=== PATIENT | male | born 2000 | race Caucasian/White ===

== ENCOUNTER 2024-08-02 17:57 | Emergency (ER) | payer OTHER, SELFPAY ==
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
--- OUTSIDE RECORDS SUMMARY | 2024-08-02 18:04 | XMS_ITS | Data Portability ---
Author Organization [facility] Michelle Winn Address [address] [facility] [place] [address] Care Team Providers Care Pastoral Counselor Name Role Phone MARTINTatum MEI Primary Care Provider Assessment Encounter Date Assessment Date Assessment LastModified by Organization Details LastModified Time 06/26/2020 06/26/[address] Whaley, who concurs with assessment and plan. [email or web address] Not available 06/29/2020 14:01:24 05/23/2023 05/23/2023 Pt's case was discussed w/resident. Documentation was reviewed, and I agree w/resident's note. Dr. Whaley [email or web address] Not available 05/26/2023 08:01:54 Plan of Treatment Reminders Order Date Submit Date Provider Last Modified By Organization Details Last Modified Time Details Appointments None record ed. Lab RPR (rapid plasma reagin ), serum 2023 024 [facility], [address] [place] [address], [address], 4 06:18:09 chlamy brian tracho matis + neisse ga gonorr hoeae + tricho monas vagina lis DNA panel, FAMILIA+pr obe, unspec ified specim en 2023 024 [facility], [address] [facility] [address], [place], [address], 4 06:18:07 HBsAg (hepat itis B surfac e Ag), EIA, serum 2023 024 [facility], [address] [facility], [place], [address], 4 06:18:08 Hepati tis C IgG Ab, qual, serum 2023 024 [facility], [address] [facility], [address], [place], [address], 4 06:18:06 lipid panel, serum 2023 024 [facility], [address] [facility], [place], [address], 4 06:18:07 CBC w/ auto diff 2020 021 [facility], [address], [address], [place], [address], 1 07:12:20 lipid panel, serum 2020 021 [facility], [address], [address], [place], [address], 1 07:12:22 vitami n D, 25-hyd sonia, total, serum 2020 021 [facility], [address], [address], [place], [address], 1 07:12:24 CMP, serum or plasma 2020 021 [facility], [address], [address], [place], [address], 1 07:12:20 HbA1c (hemog lobin A1c), blood 2020 021 [facility], [address], [address], [place], [address], 07:12:23 urinal ysis, comple te 2020 021 [facility], [address], [address], [place], [address], 07:12:21 TSH + free T4, serum 2020 021 [facility], [address], [address], [place], [address], 1 07:12:19 CT + NG RNA, PCR, unspec ified specim en 2020 [facility] BIT[facility], [address], [address], [place], [address], 07:12:22 HIV 1+2 AB + HIV 1 p24 Ag, qualit ative immuno assay, serum 2020 [facility]ER[facility], [address], [address], [place], [address], 1 07:12:25 hsv (1+2) igg Ab, serum 2020 [facility], [address], [address], [place], [address], 1 07:12:23 RPR (rapid plasma reagin ), serum 2020 [facility], [facility] [address], [address], [place], [address], 07:12:24 hepati tis C Ab, signal -to-cu toff, serum or plasma 2020 021 [address], [address], [place], [address], 1 07:12:25 Referral otolar yngolo gist referr de 2023 024 [facility] Jacqueline Swanson , [address] [facility] , [address], [place], [address], 4 17:29:29 physic al therap ist referr de 2020 021 [facility], [address] [facility], [address], [place], [address], 1 12:26:16 orthop edic surgeo n referr de 2020 021 [facility] Mukul Rascon MD, [address] [facility] , [address], [place], [address], 1 12:05:12 Procedures cerume n remova l using irriga tion (PROC) 2021 022 [email or web address] Not available 2 17:01:01 cerume n remova l (PROC) 2021 022 [email or web address] Not available 3 17:46:05 Surgeries None record ed. Imaging US, echoca rdiogr am, transt horaci c, comple te 2023 024 [facility], [address] [facility] [place], [address], 4 10:20:59 XR, knee, 3 view 2020 021 [facility] (Radiology), [address] [facility] [place], [address], 1 13:03:22 Medication Orders Debrox 6.5 % ear drops 2023 024 [place] [address] [id number], [address], [place], [place], [id number], 4 08:01:15 Debrox 6.5 % ear drops 2021 022 [id number], [address] , [place], [place], [id number], 4 10:35:33 Patient TargetsNo targets recorded. Patient Instructions Encounter Date Encounter Id Patient Instructions Last Modified By Organization Details Last Modified Time 06/26/2020 [id number] Learning About H ow to Make Healthy Changes in Your Child's Diet Not available 06/29/2020 11:14:30 Quitting Tobacco : Care Instructions Not available 06/29/2020 11:14:30 Considering More Physical Activity for Your Child Not available 06/29/2020 11:14:30 knee sprain: car e instructions Not available 06/29/2020 11:16:05 smoking cessatio n counseling, greater than 3 minutes up to 10 minutes* Not available 06/29/2020 11:18:18 11/09/2020 [id number] knee pain or injury: care instructions Not available 11/13/2020 17:04:14 01/17/2022 [id number] Attending Physician Addendum I did not personally see or examine the patient with the resident. I was physically present to provide indirect supervision through entire encounter. I have reviewed the documentation and agree with the history, physical findings, work-up, and medical decision making as recorded. Rell Stephens MD [email or web address] Not available 01/29/2022 11:06:13 04/15/2023 [id number] On the date of this encounter, I was immediately available to assist the resident/fellow in the care of the patient, and have reviewed and agree with the resident s findings and plan of care. MD Tremaine [email or web address] Not available 04/15/2023 11:08:34 Reason for Referral Physical Therapist Referral for Pain in right knee Referring Physician: Samantha Robbins, Family Medicine, Encounter Date: 11/09/2020 Orthopedic Surgeon Referral for Pain in right knee Referring Physician: Samantha Robbins, Family Medicine, Encounter Date: 11/09/2020 Spray Gun Sizer Referral fo r Impacted cerumen of bilateral ears Referring Physician: Marietta Danielle, Tobacco Sampler, Encounter Date: 05/23/2023 Results Created Date Observation Date Name Description Value Unit Range Abnormal Flag Note LastModifiedBy Organization Detail LastModifiedTime 06/27/19 21 06/27/2020 TSH + free T4, serum TSH 1.370 uIU/m L 0.450- 4.500 Not Available [facility] ([facility]) [address] [place], [address], 06/28/2020 07:12:19 06/27/1906/27/2020 TSH + free T4, serum T4,free(dire ct) 1.29 NG/dL 0.93-1 .60 Not Available [facility] ([facility]) [address] [place], [address], 06/28/2020 07:12:19 06/27/19 21 06/27/2020 CBC w/ auto diff WBC 7.1 x10e3 /uL 3.4-10 .8 Not Available [facility] ([facility]) [address] [place], [address], 06/28/2020 07:12:20 06/27/19 21 06/27/2020 CBC w/ auto diff RBC 5.15 x10e6 /uL 4.14-5 .80 Not Available [facility] ([facility]) [address] [place], [address], 06/28/2020 07:12:20 06/27/19 21 06/27/2020 CBC w/ auto diff hemoglobin 16.0 g/dL 13.0-1 7.7 Not Available [facility] ([facility]) [address] [place], [address], 06/28/2020 07:12:20 06/27/19 21 06/27/2020 CBC w/ auto diff hematocrit 45.4 % 37.5-5 1.0 Not Available [facility] ([facility]) [address] [place], [address], 06/28/2020 07:12:20 06/27/19 21 06/27/2020 CBC w/ auto diff MCV 88 fL 79-97 Not Available [facility] ([facility]) [address] [place], [address], 06/28/2020 07:12:20 06/27/19 21 06/27/2020 CBC w/ auto diff MCH 31.1 pg 26.6-3 3.0 Not Available [facility] ([facility]) [address] [place], [address], 06/28/2020 07:12:20 06/27/19 21 06/27/2020 CBC w/ auto diff MCHC 35.2 g/dL 31.5-3 5.7 Not Available [facility] ([facility]) [address] [place], [address], 06/28/2020 07:12:20 06/27/19 21 06/27/2020 CBC w/ auto diff RDW 13.1 % 11.6-1 5.4 Not Available [facility] ([facility]) [address] [place], [address], 06/28/2020 07:12:20 06/27/19 21 06/27/2020 CBC w/ auto diff platelets 222 x10e3 /uL 150-45 0 Not Available [facility] ([facility]) [address] [place], [address], 06/28/2020 07:12:20 06/27/19 21 06/27/2020 CBC w/ auto diff neutrophils 54 % not estab. Not Available [facility] ([facility]) [address] [facility], [place], [address], 06/28/2020 07:12:20 06/27/19 21 06/27/2020 CBC w/ auto diff lymphs 33 % not estab. Not Available [facility] ([facility]) [address] [facility], [place], [address], 06/28/2020 07:12:20 06/27/19 21 06/27/2020 CBC w/ auto diff monocytes 10 % not estab. Not Available [facility] ([facility]) [address] [facility], [place], [address], 06/28/2020 07:12:20 06/27/19 21 06/27/2020 CBC w/ auto diff eos 2 % not estab. Not Available [facility] ([facility]) [address] [facility], [place], [address], 06/28/2020 07:12:20 06/27/19 21 06/27/2020 CBC w/ auto diff basos 1 % not estab. Not Available [facility] ([facility]) [address] [facility], [place], [address], 06/28/2020 07:12:20 06/27/19 21 06/27/2020 CBC w/ auto diff immature cells PROJECT ASST Not Available [facility] ([facility]) [address] [facility], [place], [address], 06/28/2020 07:12:20 06/27/19 21 06/27/2020 CBC w/ auto diff neutrophils (absolute) 3.9 x10e3 /uL 1.4-7. 0 Not Available [facility] ([facility]) [address] [place], [address], 06/28/2020 07:12:20 06/27/19 21 06/27/2020 CBC w/ auto diff lymphs (absolute) 2.3 x10e3 /uL 0.7-3. 1 Not Available [facility] ([facility]) [address] [facility], [place], [address], 06/28/2020 07:12:20 06/27/19 21 06/27/2020 CBC w/ auto diff monocytes(ab solute) 0.7 x10e3 /uL 0.1-0. 9 Not Available [facility] ([facility]) [address] [facility], [place], [address], 06/28/2020 07:12:20 06/27/19 21 06/27/2020 CBC w/ auto diff eos (absolute) 0.2 x10e3 /uL 0.0-0. 4 Not Available [facility] ([facility]) [address] [facility], [place], [address], 06/28/2020 07:12:20 06/27/19 21 06/27/2020 CBC w/ auto diff baso (absolute) 0.1 x10e3 /uL 0.0-0. 2 Not Available [facility] ([facility]) [address] [facility], [place], [address], 06/28/2020 07:12:20 06/27/19 21 06/27/2020 CBC w/ auto diff immature granulocytes 0 % not estab. Not Available [facility] ([facility]) [address] [facility], [place], [address], 06/28/2020 07:12:20 06/27/19 21 06/27/2020 CBC w/ auto diff immature grans (abs) 0.0 x10e3 /uL 0.0-0. 1 Not Available [facility] ([facility]) [address] [facility], [place], [address], 06/28/2020 07:12:20 06/27/19 21 06/27/2020 CBC w/ auto diff NRBC PROJECT ASST Not Available [facility] ([facility]) [address] [facility], [place], [address], 06/28/2020 07:12:20 06/27/19 21 06/27/2020 CBC w/ auto diff hematology comments: PROJECT ASST Not Available [facility] ([facility]) [address] [facility] [place], [address], 06/28/2020 07:12:20 06/27/19 21 06/27/2020 CMP, serum or plasm a glucose 83 mg/dL 65-99 Not Available [facility] ([facility]) [address] [facility] [place], [address], 06/28/2020 07:12:20 06/27/19 21 06/27/2020 CMP, serum or plasm a BUN 10 mg/dL 6-20 Not Available [facility] ([facility]) [address] [place], [address], 06/28/2020 07:12:20 06/27/19 21 06/27/2020 CMP, serum or plasm a creatinine 1.10 mg/dL 0.76-1 .27 Not Available [facility] ([facility]) [address] [place], [address], 06/28/2020 07:12:20 06/27/19 21 06/27/2020 CMP, serum or plasm a BUN/creatini ne ratio 9 9-20 Not Available [facility] ([facility]) [address] [place], [address], 06/28/2020 07:12:20 06/27/19 21 06/27/2020 CMP, serum or plasm a sodium 140 mmol/ L 134-14 4 Not Available [facility] ([facility]) [address] [place], [address], 06/28/2020 07:12:20 06/27/19 21 06/27/2020 CMP, serum or plasm a potassium 4.3 mmol/ L 3.5-5. 2 Not Available [facility] ([facility]) [address] [place], [address], 06/28/2020 07:12:20 06/27/1906/27/2020 CMP, serum or plasm a chloride 104 mmol/ L 96-106 Not Available [facility] ([facility]) [address] [facility] [place], [address], 06/28/2020 07:12:20 06/27/19 21 06/27/2020 CMP, serum or plasm a carbon dioxide, total 25 mmol/ L 20-29 Not Available [facility] ([facility]) [address] [facility] [place], [address], 06/28/2020 07:12:20 06/27/19 21 06/27/2020 CMP, serum or plasm a calcium 9.5 mg/dL 8.7-10 .2 Not Available [facility] ([facility]) [address] [place], [address], 06/28/2020 07:12:20 06/27/1906/27/2020 CMP, serum or plasm a protein, total 6.9 g/dL 6.0-8. 5 Not Available [facility] ([facility]) [address] [facility], [place], [address], 06/28/2020 07:12:20 06/27/1906/27/2020 CMP, serum or plasm a albumin 4.8 g/dL 4.1-5. 2 Not Available [facility] ([facility]) [address] [facility] [place], [address], 06/28/2020 07:12:20 06/27/1906/27/2020 CMP, serum or plasm a globulin, total 2.1 g/dL 1.5-4. 5 Not Available [facility] ([facility]) [address] [place], [address], 06/28/2020 07:12:20 0506/27/2020 CMP, serum or plasm a A/G ratio 2.3 1.2-2. 2 above high normal Not Available [facility] ([facility]) [address] [facility] [place], [address], 06/28/2020 07:12:20 06/27/19 21 06/27/2020 CMP, serum or plasm a bilirubin, total 0.4 mg/dL 0.0-1. 2 Not Available [facility] ([facility]) [address] [facility] [place], [address], 06/28/2020 07:12:20 06/27/1906/27/2020 CMP, serum or plasm a alkaline phosphatase 45 IU/L 56-127 below low normal Not Available [facility] ([facility]) [address] [facility] [place], [address], 06/28/2020 07:12:20 06/27/1906/27/2020 CMP, serum or plasm a AST (SGOT) 18 IU/L 0-40 Not Available [facility] ([facility]) [address] [facility] [place], [address], 06/28/2020 07:12:20 06/27/1906/27/2020 CMP, serum or plasm a ALT (SGPT) 13 IU/L 0-44 Not Available [facility] ([facility]) [address] [place], [address], 06/28/2020 07:12:20 06/27/1906/27/2020 urina lysis , compl ete specific gravity 1.021 1.005- 1.030 Not Available [facility] ([facility]) [address] [facility] [place], [address], 06/28/2020 07:12:21 06/27/19 21 06/27/2020 urina lysis , compl ete pH 6.5 5.0-7. 5 Not Available [facility] ([facility]) [address] [facility], [place], [address], 06/28/2020 07:12:21 06/27/1906/27/2020 urina lysis , compl ete urine-color Yellow yellow Not Available [facility] ([facility]) [address] [facility], [place], [address], 06/28/2020 07:12:21 06/27/1906/27/2020 urina lysis , compl ete appearance Clear clear Not Available [facility] ([facility]) [address] [facility], [place], [address], 06/28/2020 07:12:21 06/27/1906/27/2020 urina lysis , compl ete WBC esterase Negati ve negati ve Not Available [facility] ([facility]) [address] [facility], [place], [address], 06/28/2020 07:12:21 06/27/1906/27/2020 urina lysis , compl ete protein Negati ve negati ve/tra ce Not Available [facility] ([facility]) [address] [facility], [place], [address], 06/28/2020 07:12:21 06/27/1906/27/2020 urina lysis , compl ete glucose Negati ve negati ve Not Available [facility] ([facility]) [address] [place], [address], 06/28/2020 07:12:21 06/27/1906/27/2020 urina lysis , compl ete ketones Negati ve negati ve Not Available [facility] ([facility]) [address] [place], [address], 06/28/2020 07:12:21 06/27/1906/27/2020 urina lysis , compl ete occult blood Negati ve negati ve Not Available [facility] ([facility]) [address] [facility], [place], [address], 06/28/2020 07:12:21 06/27/1906/27/2020 urina lysis , compl ete bilirubin Negati ve negati ve Not Available [facility] ([facility]) [address] [place], [address], 06/28/2020 07:12:21 06/27/1906/27/2020 urina lysis , compl ete urobilinogen ,semi-qn 0.2 mg/dL 0.2-1. 0 Not Available [facility] ([facility]) [address] [place], [address], 06/28/2020 07:12:21 06/27/19 21 06/27/2020 urina lysis , compl ete nitrite, urine Negati ve negati ve Not Available [facility] ([facility]) [address] [facility], [place], [address], 06/28/2020 07:12:21 06/27/1906/27/2020 urina lysis , compl ete microscopic examination Commen t Micro scopi c follo ws if indic ated. Not Available [facility] ([facility]) [address] [facility], [place], [address], 06/28/2020 07:12:21 06/27/1906/27/2020 urina lysis , compl ete microscopic examination See below: Micro scopi c was indic ated and was perfo rmed. Not Available [facility] ([facility]) [address] [place], [address], 06/28/2020 07:12:21 06/27/1906/27/2020 urina lysis , compl ete WBC None seen /hpf 0 - 5 Not Available [facility] ([facility]) [address] [place], [address], 06/28/2020 07:12:21 06/27/19 21 06/27/2020 urina lysis , compl ete RBC None seen /hpf 0 - 2 Not Available [facility] ([facility]) [address] [facility], [place], [address], 06/28/2020 07:12:21 06/27/19 21 06/27/2020 urina lysis , compl ete epithelial cells (non renal) None seen /hpf 0 - 10 Not Available [facility] ([facility]) [address] [facility], [place], [address], 06/28/2020 07:12:21 06/27/19 21 06/27/2020 urina lysis , compl ete epithelial cells (renal) PROJECT ASST Not Available [facility] ([facility]) [address] [facility], [place], [address], 06/28/2020 07:12:21 06/27/19 21 06/27/2020 urina lysis , compl ete casts None seen /lpf none seen Not Available [facility] ([facility]) [address] [facility], [place], [address], 06/28/2020 07:12:21 06/27/1906/27/2020 urina lysis , compl ete cast type PROJECT ASST Not Available [facility] ([facility]) [address] [facility], [place], [address], 06/28/2020 07:12:21 06/27/1906/27/2020 urina lysis , compl ete crystals PROJECT ASST Not Available [facility] ([facility]) [address] [facility], [place], [address], 06/28/2020 07:12:21 06/27/1906/27/2020 urina lysis , compl ete crystal type PROJECT ASST Not Available [facility] ([facility]) [address] [facility], [place], [address], 06/28/2020 07:12:21 06/27/19 21 06/27/2020 urina lysis , compl ete mucus threads PROJECT ASST Not Available [facility] ([facility]) [address] [facility], [place], [address], 06/28/2020 07:12:21 06/27/19 21 06/27/2020 urina lysis , compl ete bacteria None seen none seen/f ew Not Available [facility] ([facility]) [address] [facility], [place], [address], 06/28/2020 07:12:21 06/27/1906/27/2020 urina lysis , compl ete yeast PROJECT ASST Not Available [facility] ([facility]) [address] [facility], [place], [address], 06/28/2020 07:12:21 06/27/1906/27/2020 urina lysis , compl ete trichomonas PROJECT ASST Not Available [facility] ([facility]) [address] [facility], [place], [address], 06/28/2020 07:12:21 06/27/1906/27/2020 urina lysis , compl ete comment PROJECT ASST Not Available [facility] ([facility]) [address] [facility], [place], [address], 06/28/2020 07:12:21 06/27/1906/27/2020 lipid panel , serum cholesterol, total 142 mg/dL 100-16 9 Not Available [facility] ([facility]) [address] [place], [address], 06/28/2020 07:12:22 06/27/1906/27/2020 lipid panel , serum triglyceride s 153 mg/dL 0-89 above high normal Not Available [facility] ([facility]) [address] [place], [address], 06/28/2020 07:12:22 06/27/19 21 06/27/2020 lipid panel , serum HDL cholesterol 59 mg/dL >39 Not Available [facility]) [address] [facility], [place], [address], 06/28/2020 07:12:22 06/27/19 21 06/27/2020 lipid panel , serum VLDL cholesterol cely 26 mg/dL 5-40 Not Available [facility] ([facility]) [address] [facility], [place], [address], 06/28/2020 07:12:22 06/27/19 21 06/27/2020 lipid panel , serum LDL chol calc ([facility]) 57 mg/dL 0-109 Not Available [facility] ([facility]) [address] [facility], [place], [address], 06/28/2020 07:12:22 06/27/19 21 06/27/2020 lipid panel , serum comment: PROJECT ASST Not Available [facility] ([facility]) [address] [place], [address], 06/28/2020 07:12:22 06/27/19 21 06/27/2020 CT + NG RNA, PCR, unspe cifie d speci men chlamydia trachomatis, FAMILIA Negati ve negati ve Not Available [facility] ([facility]) [address] [place], [address], 06/28/2020 07:12:22 06/27/1906/27/2020 CT + NG RNA, PCR, unspe cifie d speci men neisseria gonorrhoeae, FAMILIA Negati ve negati ve Not Available [facility] ([facility]) [address] [place], [address], 06/28/2020 07:12:22 06/27/19 21 06/27/2020 hsv (1+2) igg Ab, serum hsv 1 IgG, type spec 2.27 index 0.00-0 .90 above high normal Negat jacki <0.91 Equiv ocal 0.91 - 1.09 Posit jacki >1.09 Note: Negat jacki indic ates no antib odies detec carrie to HSV-1 . Equiv ocal may sugge st early infec tion. If clini skye appro priat e, retes t at later date. Posit jacki indic ates antib odies detec carrie to HSV-1 . Not Available [facility] ([facility]) [address] [facility], [place], [address], 06/28/2020 07:12:23 06/27/19 21 06/27/2020 hsv (1+2) igg Ab, serum hsv 2 IgG, type spec <0.91 index 0.00-0 .90 Negat jacki <0.91 Equiv ocal 0.91 - 1.09 Posit jacki >1.09 Note: Negat jacki indic ates no antib odies detec carrie to HSV-2 . Equiv ocal may sugge st early infec tion. If clini skye appro priat e, retes t at later date. Posit jacki indic ates antib odies detec carrie to HSV-2 . Not Available [facility] ([facility]) [address] [facility], [place], [address], 06/28/2020 07:12:23 06/27/1906/27/2020 HbA1c (hemo globi n A1c), blood hemoglobin A1C 5.5 % 4.8-5. 6 Predi abete s: 5.7 - 6.4 Diabe sandeep: >6.4 Glyce kylah contr ol for adult s with diabe sandeep: <7.0 Not Available [facility] ([facility]) [address] [facility], [place], [address], 06/28/2020 07:12:23 06/27/1906/27/2020 RPR (rapi d plasm a reagi n), serum RPR Non Reacti ve non reacti ve Not Available [facility] ([facility]) [address] [facility], [place], [address], 06/28/2020 07:12:24 06/27/19 21 06/27/2020 vitam in D, 25-hy droxy , total , serum vitamin D, 25-hydroxy 27.7 NG/mL 30.0-1 00.0 below low normal Vitam in D defic iency has been defin ed by the Insti tute of Medic ine and an Endoc rine Socie ty pract ice guide line as a level of serum 25-OH vitam in D less than 20 ng/mL (1,2) . The Endoc rine Socie ty went on to furth er defin e vitam in D insuf ficie ncy as a level betwe en 21 and 29 ng/mL (2). 1. IOM (Inst itute of Medic ine). 2010. Dieta ry refer ence intak es for calci um and D. Octavia rodriguez [place]: The [facility] . 2. Radha pineda [place], Sravanthi sheldon [place], [place] off-F errar i NUNEZ, et al. Evalu ation , treat ment, and preve ntion of vitam in D defic iency : an Endoc rine Socie ty clini cely pract ice guide line. JCEM. 2010; 96(7) :1911 -30. Not Available [facility] ([facility]) [address] [facility], [place], [address], 06/28/2020 07:12:24 06/27/19 21 06/27/2020 HIV 1+2 AB + HIV 1 p24 Ag, quali tativ e immun oassa y, serum HIV screen 4TH generation wrfx Non Reacti ve non reacti ve Not Available [facility] ([facility]) [address], [place], [address], 06/28/2020 07:12:25 06/27/19 21 06/27/2020 hepat itis C Ab, signa l-to- cutof f, serum or plasm a HCV Ab <0.1 s/co_ ratio 0.0-0. 9 Not Available [facility] ([facility]) [address], [place], [address], 06/28/2020 07:12:25 06/27/1906/27/2020 hepat itis C Ab, signa l-to- cutof f, serum or plasm a comment: Commen t Non react jacki HCV antib estee scree n is consi stent with no HCV infec tion, unles s recen t infec tion is suspe cted or other evide nce exist s to indic ate HCV infec tion. Not Available [facility] ([facility]) [address], [place], [address], 06/28/2020 07:12:25 04/15/1904/16/2023 HCV ANTIB ESTEE hep C virus Ab Non Reacti ve nonrea ctive HCV antib estee alone does not diffe renti ate betwe en previ ously resol ella infec tion and activ e infec tion. Equiv ocal and React jacki HCV antib estee resul ts shoul d be follo wed up with an HCV RNA test to suppo rt the diagn osis of activ e HCV infec tion. Not Available [facility] ([facility]) [address], [place], [address], 04/17/2023 06:18:06 04/15/19 24 04/17/2023 CT, NG, TRICH VAG BY FAMILIA chlamydia by FAMILIA Positi ve negati ve abnormal Not Available [facility] ([facility]) [address], [place], [address], 04/17/2023 06:18:07 04/15/19 24 04/17/2023 CT, NG, TRICH VAG BY FAMILIA gonococcus by FAMILIA Negati ve negati ve Not Available [facility] ([facility]) [address], [place], [address], 04/17/2023 06:18:07 04/15/19 24 04/17/2023 CT, NG, TRICH VAG BY FAMILIA trich vag by FAMILIA Negati ve negati ve Not Available [facility] ([facility]) [address] [place], [address], 04/17/2023 06:18:07 04/15/19 24 04/16/2023 LIPID PANEL cholesterol, total 132 mg/dL 100-19 9 Not Available [facility] ([facility]) [address] [place], [address], 04/17/2023 06:18:07 04/15/19 24 04/16/2023 LIPID PANEL triglyceride s 113 mg/dL 0-149 Not Available [facility] ([facility]) [address] [place], [address], 04/17/2023 06:18:07 04/15/19 24 04/16/2023 LIPID PANEL HDL cholesterol 58 mg/dL >39 Not Available [facility] ([facility]) [address] [place], [address], 04/17/2023 06:18:07 04/15/19 24 04/16/2023 LIPID PANEL VLDL cholesterol cely 20 mg/dL 5-40 Not Available [facility] ([facility]) [address] [place], [address], 04/17/2023 06:18:07 04/15/19 24 04/16/2023 LIPID PANEL LDL chol calc ([facility]) 54 mg/dL 0-99 Not Available [facility] ([facility]) [address] [place], [address], 04/17/2023 06:18:07 04/15/19 24 04/16/2023 HBSAG SCREE N HBsAg screen Negati ve negati ve Not Available [facility] ([facility]) [address] [place], [address], 04/17/2023 06:18:08 04/15/19 24 04/16/2023 RPR, RFX QN RPR/C ONFIR M TP RPR Non Reacti ve nonrea ctive Not Available [facility] ([facility]) [address], [place], [address], 04/17/2023 06:18:09 05/27/1905/26/2024 Eryth rocyt e sedim entat ion rate [[place]] in Red Blood Cells erythrocyte sedimentatio n rate [velocity] in red blood cells 10 mm/h high: 15mm/h ESR (SED RATE, ERYTH ROCYT E SEDIM ENTAT ION RATE) 10 <15 mm/h 05/26 10:15 PM CDT [facility] Not Available Not Available 06/03/2024 09:11:29 05/27/1905/26/2024 Eryth rocyt e sedim entat ion rate [[place]] in Red Blood Cells interpretati on and review of laboratory results Normal Not Available Not Available 05/18 09:11:29 05/27/1905/26/2024 C react jacki prote in [Mass /volu me] in Serum or Plasm a C reactive protein [mass/volume ] in serum or plasma 2.46 mg/dL high: 0.5mg/ dL high C-LUIS ANGEL CTIVE PROTE IN 2.46 (H) <0.50 mg/dL 05/26 10:38 PM CDT [facility] Not Available Not Available 06/03/2024 09:11:29 05/27/1905/26/2024 C react jacki prote in [Mass /volu me] in Serum or Plasm a interpretati on and review of laboratory results Abnorm al Not Available Not Available 09:11:29 05/27/19 25 05/27/2024 Acute hepat itis 2000 panel - Serum hepatitis A virus IgM Ab [presence] in serum NON DETECT ED text: non detect ed HEPAT ITIS A IGM ANTIB ESTEE NON DETEC CARRIE NON DETEC CARRIE 05/27 3:17 PM CDT [facility] Not Available Not Available 06/03/2024 09:11:28 05/27/19 25 05/27/2024 Acute hepat itis 2000 panel - Serum hepatitis B virus core IgM Ab [presence] in serum NON DETECT ED text: non detect ed HEP B CORE AB (IGM) NON DETEC CARRIE NON DETEC CARRIE 05/27 3:17 PM CDT [facility] Not Available Not Available 06/03/2024 09:11:28 05/27/19 25 05/27/2024 Acute hepat itis 2000 panel - Serum hepatitis B virus surface Ag [presence] in serum NON DETECT ED text: non detect ed HEPAT ITIS B SURFA CE ANTIG EN NON DETEC CARRIE NON DETEC CARRIE 05/27 3:17 PM CDT [facility] Not Available Not Available 06/03/2024 09:11:28 05/27/19 25 05/27/2024 Acute hepat itis 2000 panel - Serum hepatitis C virus Ab signal/cutof f in serum or plasma by immunoassay 0.16 text: <1 S/co hepat itis C antib estee 0.16 <1 S/CO 05/27 3:17 PM CDT [facility] Not Available Not Available 06/03/2024 09:11:28 05/27/19 25 05/27/2024 Acute hepat itis 2000 panel - Serum interpretati on and review of laboratory results Normal Not Available Not Available 05/18 09:11:28 05/27/19 25 05/31/2024 Bacte ga ident ified in Blood by Cultu re bacteria identified in blood by culture NO GROWTH WITHIN 5 DAYS, FINAL RESULT CULTU RE RESUL TS NO GROWT H WITHI N 5 DAYS, FINAL RESUL T 05/31 9:00 PM CDT [facility] Not Available Not Available 06/03/2024 09:11:28 05/27/19 25 05/27/2024 Heter ophil e Ab [Pres ence] in Serum heterophile Ab [presence] in serum Negati ve text: negati ve MONO TEST Negat jacki Negat jacki 05/26 11:23 PM CDT [facility] Not Available Not Available 06/03/2024 09:11:28 05/27/19 25 05/27/2024 Heter ophil e Ab [Pres ence] in Serum interpretati on and review of laboratory results Normal Not Available Not Available 05/18 09:11:28 05/27/19 25 05/26/2024 Lacta te [Mole s/vol ume] in Serum or Plasm a lactate [moles/volum e] in serum or plasma 1.9 mmol/ L low: 0.7mmo l/Lhig h: 2mmol/ L LACTI C ACID 1.9 0.7 - 2.0 mmol/ L 05/26 9:10 PM CDT [facility] R LAB Not Available Not Available 06/03/2024 09:11:28 05/27/19 25 05/26/2024 Lacta te [Mole s/vol ume] in Serum or Plasm a interpretati on and review of laboratory results Normal Not Available Not Available 05/18 09:11:28 05/28/19 25 05/27/2024 Methi cilli n resis tant Staph yloco ccus aureu s (MRSA ) DNA [Pres ence] in Speci men by FAMILIA with probe detec tion methicillin resistant staphylococc us aureus (MRSA) DNA [presence] in specimen by FAMILIA with probe detection Positi ve text: negati ve, invali d abnormal MRSA PCR RESUL T Posit jacki (A) Negat jacki, Inval id 05/27 12:53 AM CDT [facility] Not Available Not Available 06/03/2024 09:11:29 05/28/19 25 05/27/2024 Methi cilli n resis tant Staph yloco ccus aureu s (MRSA ) DNA [Pres ence] in Speci men by FAMILIA with probe detec tion interpretati on and review of laboratory results Abnorm al Not Available Not Available 09:11:29 06/01/19 25 05/31/2024 Vanco mycin [Mass /volu me] in Serum or Plasm a vancomycin [mass/volume ] in serum or plasma 11 text: 20 - 40 mcg/mL low VANCO MYCIN RESUL T 11 (L) 20 - 40 mcg/m L 05/31 7:24 AM CDT [facility] Not Available Not Available 06/03/2024 09:11:29 06/01/1905/31/2024 Vanco mycin [Mass /volu me] in Serum or Plasm a Unknown Analyte CALL PHARMA CY FOR THERAP EUTIC RANGE. CALL PHARM ACY FOR THERA PEUTI C RANGE . Not Available Not Available 06/03/2024 09:11:29 06/01/1905/31/2024 Vanco mycin [Mass /volu me] in Serum or Plasm a interpretati on and review of laboratory results Abnorm al Not Available Not Available 09:11:29 06/01/1905/31/2024 CBC W Auto Diffe renti al panel - Blood leukocytes [#/volume] in blood by automated count 5.06 text: 4.00 - 12.00 10(3)/ mcL WBC 5.06 4.00 - 12.00 10(3) /mcL 05/31 7:08 AM CDT [facility] Not Available Not Available 06/03/2024 09:11:29 06/01/1905/31/2024 CBC W Auto Diffe renti al panel - Blood erythrocytes [#/volume] in blood by automated count 4.82 text: 4.40 - 5.80 10(6)/ mcL RBC 4.82 4.40 - 5.80 10(6) /mcL 05/31 7:08 AM CDT [facility] Not Available Not Available 06/03/2024 09:11:29 06/01/1905/31/2024 CBC W Auto Diffe renti al panel - Blood hemoglobin [mass/volume ] in blood 15.1 g/dL low: 13g/dL high: 16.5g/ dL HEMOG LOBIN (HGB) 15.1 13.0 - 16.5 g/dL 05/31 7:08 AM CDT [facility] Not Available Not Available 06/03/2024 09:11:29 06/01/1905/31/2024 CBC W Auto Diffe renti al panel - Blood hematocrit [volume fraction] of blood by automated count 44.3 % low: 38%hig h: 50% HEMAT OCRIT (HCT) 44.3 38.0 - 50.0 % 05/31 7:08 AM CDT [facility] Not Available Not Available 06/03/2024 09:11:29 06/01/19 25 05/31/2024 CBC W Auto Diffe renti al panel - Blood MCV [entitic mean volume] in red blood cells by automated count 91.9 fL low: 82fLhi gh: 96fL MCV 91.9 82.0 - 96.0 fL 05/31 7:08 AM CDT [facility] Not Available Not Available 06/03/2024 09:11:29 06/01/19 25 05/31/2024 CBC W Auto Diffe renti al panel - Blood MCH [entitic mass] by automated count 31.3 pg low: 26pghi gh: 32pg MCH 31.3 26.0 - 32.0 pg 05/31 7:08 AM CDT [facility] Not Available Not Available 06/03/2024 09:11:29 06/01/19 25 05/31/2024 CBC W Auto Diffe renti al panel - Blood MCHC [entitic mass/volume] in red blood cells by automated count 34.1 g/dL low: 31g/dL high: 36g/dL MCHC 34.1 31.0 - 36.0 g/dL 05/31 7:08 AM CDT [facility] Not Available Not Available 06/03/2024 09:11:29 06/01/19 25 05/31/2024 CBC W Auto Diffe renti al panel - Blood platelets [#/volume] in blood 205 text: 140 - 440 10(3)/ mcL PLATE LET COUNT 205 140 - 440 10(3) /mcL 05/31 7:08 AM CDT [facility] Not Available Not Available 06/03/2024 09:11:29 06/01/19 25 05/31/2024 CBC W Auto Diffe renti al panel - Blood erythrocyte [distwidth] in red blood cells by automated count 11.9 % low: 11.8%h igh: 15.5% RDW 11.9 11.8 - 15.5 % 05/31 7:08 AM CDT [facility] Not Available Not Available 06/03/2024 09:11:29 06/01/19 25 05/31/2024 CBC W Auto Diffe renti al panel - Blood platelet [entitic mean volume] in blood by automated count 10.2 fL low: 8fLhig h: 12.6fL MPV 10.2 8.0 - 12.6 fL 05/31 7:08 AM CDT [facility] Not Available Not Available 06/03/2024 09:11:29 06/01/19 25 05/31/2024 CBC W Auto Diffe renti al panel - Blood neutrophils/ leukocytes in blood by automated count 41.5 % low: 40%hig h: 68% NEUTR OPHIL S 41.5 40.0 - 68.0 % 05/31 7:08 AM CDT [facility] Not Available Not Available 06/03/2024 09:11:29 06/01/19 25 05/31/2024 CBC W Auto Diffe renti al panel - Blood lymphocytes/ leukocytes in blood by automated count 32 % low: 19%hig h: 49% LYMPH OCYTE S 32.0 19.0 - 49.0 % 05/31 7:08 AM CDT [facility] Not Available Not Available 06/03/2024 09:11:29 06/01/19 25 05/31/2024 CBC W Auto Diffe renti al panel - Blood monocytes/le ukocytes in blood by automated count 17.8 % low: 3%high : 13% high MONOC YTES 17.8 (H) 3.0 - 13.0 % 05/31 7:08 AM CDT [facility] Not Available Not Available 06/03/2024 09:11:29 06/01/19 25 05/31/2024 CBC W Auto Diffe renti al panel - Blood eosinophils/ leukocytes in blood by automated count 7.3 % low: 0%high : 8% EOSIN OPHIL S 7.3 0.0 - 8.0 % 05/31 7:08 AM CDT [facility] Not Available Not Available 06/03/2024 09:11:29 06/01/19 25 05/31/2024 CBC W Auto Diffe renti al panel - Blood basophils/le ukocytes in blood by automated count 1.4 % low: 0%high : 1% high BASOP HILS 1.4 (H) 0.0 - 1.0 % 05/31 7:08 AM CDT [facility] Not Available Not Available 06/03/2024 09:11:29 06/01/19 25 05/31/2024 CBC W Auto Diffe renti al panel - Blood neutrophils [#/volume] in blood by automated count 2.1 text: 1.40 - 5.30 10(3)/ mcL ABSOL HYDABURG NEUTR OPHIL S 2.10 1.40 - 5.30 10(3) /mcL 05/31 7:08 AM CD[facility] Not Available Not Available 06/03/2024 09:11:29 06/01/19 25 05/31/2024 CBC W Auto Diffe renti al panel - Blood lymphocytes [#/volume] in blood by automated count 1.62 text: 0.90 - 3.30 10(3)/ mcL ABSOL HYDABURG LYMPH OCYTE S 1.62 0.90 - 3.30 10(3) /mcL 05/31 7:08 AM CDT [facility] Not Available Not Available 06/03/2024 09:11:29 06/01/19 25 05/31/2024 CBC W Auto Diffe renti al panel - Blood monocytes [#/volume] in blood by automated count 0.9 text: 0.10 - 0.90 10(3)/ mcL ABSOL HYDABURG MONOC YTES 0.90 0.10 - 0.90 10(3) /mcL 05/31 7:08 AM CDT [facility] Not Available Not Available 06/03/2024 09:11:29 06/01/19 25 05/31/2024 CBC W Auto Diffe renti al panel - Blood eosinophils [#/volume] in blood by automated count 0.37 text: 0.00 - 0.50 10(3)/ mcL ABSOL HYDABURG EOSIN OPHIL 0.37 0.00 - 0.50 10(3) /mcL 05/31 7:08 AM CDT [facility] Not Available Not Available 06/03/2024 09:11:29 06/01/1905/31/2024 CBC W Auto Diffe renti al panel - Blood basophils [#/volume] in blood by automated count 0.07 text: 0.00 - 0.10 10(3)/ mcL ABSOL HYDABURG BASOP HILS 0.07 0.00 - 0.10 10(3) /mcL 05/31 7:08 AM CDT [facility] Not Available Not Available 06/03/2024 09:11:29 06/01/1905/31/2024 CBC W Auto Diffe renti al panel - Blood nucleated erythrocytes /leukocytes [ratio] in blood 0 NRBC PER 100 WBC 0 05/31 7:08 AM CDT [facility] Not Available Not Available 06/03/2024 09:11:29 06/01/19 25 05/31/2024 CBC W Auto Diffe renti al panel - Blood interpretati on and review of laboratory results Abnorm al Not Available Not Available 09:11:29 06/01/1905/31/2024 Compr ehens jacki metab olic 2000 panel - Serum or Plasm a sodium [moles/volum e] in serum or plasma 141 mmol/ L low: 136mmo l/Lhig h: 145mmo l/L SODIU M 141 136 - 145 mmol/ L 05/31 8:39 AM CDT [facility] Not Available Not Available 06/03/2024 09:11:29 06/01/19 25 05/31/2024 Compr ehens jacki metab olic 1999 panel - Serum or Plasm a potassium [moles/volum e] in serum or plasma 4.4 mmol/ L low: 3.5mmo l/Lhig h: 5.1mmo l/L POTAS SIUM 4.4 3.5 - 5.1 mmol/ L 05/31 8:39 AM CDT [facility] Not Available Not Available 06/03/2024 09:11:29 06/01/19 25 05/31/2024 Compr ehens jacki metab olic 1999 panel - Serum or Plasm a chloride [moles/volum e] in serum or plasma 106 mmol/ L low: 98mmol /Lhigh : 107mmo l/L CHLOR AMY 106 98 - 107 mmol/ L 05/31 8:39 AM CDT [facility] Not Available Not Available 06/03/2024 09:11:29 06/01/19 25 05/31/2024 Compr ehens jacki metab olic 1999 panel - Serum or Plasm a carbon dioxide, total [moles/volum e] in serum or plasma 28 mmol/ L low: 22mmol /Lhigh : 30mmol /L CO2, VENOU S 28 22 - 30 mmol/ L 05/31 8:39 AM CDT [facility] Not Available Not Available 06/03/2024 09:11:29 06/01/19 25 05/31/2024 Compr ehens jacki metab olic 1999 panel - Serum or Plasm a anion gap in serum or plasma by calculation 11.4 mmol/ L high: 18mmol /L ANION GAP 11.4 <18.0 mmol/ L 05/31 8:39 AM T [facility] Not Available Not Available 06/03/2024 09:11:29 06/01/19 25 05/31/2024 Compr ehens jacki metab olic 2000 panel - Serum or Plasm a glucose [mass/volume ] in serum or plasma 93 mg/dL low: 70mg/d Lhigh: 99mg/d L GLUCO SE 93 70 - 99 mg/dL 05/31 8:39 AM CDT [facility] Not Available Not Available 06/03/2024 09:11:29 06/01/19 25 05/31/2024 Compr ehens jacki metab olic 2000 panel - Serum or Plasm a urea nitrogen [mass/volume ] in serum or plasma 11 mg/dL low: 9mg/dL high: 21mg/d L BUN 11 9 - 21 mg/dL 05/31 8:39 AM CDT [facility] Not Available Not Available 06/03/2024 09:11:29 06/01/19 25 05/31/2024 Compr ehens jacki metab olic 2000 panel - Serum or Plasm a creatinine [mass/volume ] in serum or plasma 0.89 mg/dL low: 0.7mg/ dLhigh : 1.3mg/ dL CREAT ININE , BLOOD 0.89 0.70 - 1.30 mg/dL 05/31 8:39 AM CDT [facility] Not Available Not Available 06/03/2024 09:11:29 06/01/19 25 05/31/2024 Compr ehens jacki metab olic 2000 panel - Serum or Plasm a urea nitrogen/cre atinine [mass ratio] in serum or plasma 12 text: 12 - 20 ratio BUN/C REATI NINE RATIO 12 12 - 20 ratio 05/31 8:39 AM CDT [facility] Not Available Not Available 06/03/2024 09:11:29 06/01/19 25 05/31/2024 Compr ehens jacki metab olic 2000 panel - Serum or Plasm a protein [mass/volume ] in serum or plasma 6.5 g/dL low: 6g/dLh igh: 8g/dL TOTAL PROTE IN 6.5 6.0 - 8.0 g/dL 05/31 8:39 AM CDT [facility] Not Available Not Available 06/03/2024 09:11:29 06/01/19 25 05/31/2024 Compr Downens jacki metab olic 1999 panel - Serum or Plasm a albumin [mass/volume ] in serum or plasma 3.6 g/dL low: 3.5g/d Lhigh: 5g/dL ALBUM IN 3.6 3.5 - 5.0 g/dL 05/31 8:39 AM CDT [facility] Not Available Not Available 06/03/2024 09:11:29 06/01/19 25 05/31/2024 Compr ehens jacki metab olic 1999 panel - Serum or Plasm a albumin/glob ulin [mass ratio] in serum or plasma 1.2 low: 1high: 2.2 A/G RATIO 1.2 1.0 - 2.2 05/31 8:39 AM CDT [facility] Not Available Not Available 06/03/2024 09:11:29 06/01/1905/31/2024 Compr Downens jacki metab olic 1999 panel - Serum or Plasm a calcium [mass/volume ] in serum or plasma 8.9 mg/dL low: 8.7mg/ dLhigh : 10.5mg /dL CALCI UM 8.9 8.7 - 10.5 mg/dL 05/31 8:39 AM CDT [facility] Not Available Not Available 06/03/2024 09:11:29 06/01/1905/31/2024 Compr Downens jacki metab olic 1999 panel - Serum or Plasm a bilirubin.to lisseth [mass/volume ] in serum or plasma 0.3 mg/dL low: 0.2mg/ dLhigh : 1.2mg/ dL T BILI 0.3 0.2 - 1.2 mg/dL 05/31 8:39 AM CDT [facility] LAB Not Available Not Available 06/03/2024 09:11:29 06/01/19 25 05/31/2024 Compr Downens jacki metab olic 2000 panel - Serum or Plasm a aspartate aminotransfe rase [enzymatic activity/vol ume] in serum or plasma 86 U/L high: 43U/L high SGOT (AST) 86 (H) <43 U/L 05/31 8:39 AM CDT [facility] Not Available Not Available 06/03/2024 09:11:29 06/01/19 25 05/31/2024 Compr Downens jacki metab olic 1999 panel - Serum or Plasm a alanine aminotransfe rase [enzymatic activity/vol ume] in serum or plasma 138 U/L high: 56U/L high SGPT (ALT) 138 (H) <56 U/L 05/31 8:39 AM CDT [facility] Not Available Not Available 06/03/2024 09:11:29 06/01/1905/31/2024 Compr Downens jacki metab olic 2000 panel - Serum or Plasm a alkaline phosphatase [enzymatic activity/vol ume] in serum or plasma 40 U/L low: 40U/Lh igh: 150U/L ALKAL INE PHOSP HATAS E 40 40 - 150 U/L 05/31 8:39 AM CDT [facility] Not Available Not Available 06/03/2024 09:11:29 06/01/1905/31/2024 Compr Downens jacki metab olic 2000 panel - Serum or Plasm a glomerular filtration rate [volume rate/area] in serum, plasma or blood by creatinine-b ased formula (CKD-epi 2020)/1.73 sq M low: 60 GFR, ESTIM ATED >60 >=60 05/31 8:39 AM CDT [facility] Not Available Not Available 06/03/2024 09:11:29 06/01/1905/31/2024 Compr ehens jacki metab olic 2000 panel - Serum or Plasm a glomerular filtration rate [volume rate/area] in serum, plasma or blood by creatinine-b ased formula (MDRD)/1.73 sq M among black population low: 60 GFR, EST. AFRIC AN >60 >=60 05/31 8:39 AM CDT [facility] Not Available Not Available 06/03/2024 09:11:29 06/01/1905/31/2024 Compr ehens jacki metab olic 2000 panel - Serum or Plasm a glomerular filtration rate [volume rate/area] in serum, plasma or blood by creatinine-b ased formula (MDRD)/1.73 sq M among non black population low: 60 GFR, EST. NONAF RICAN >60 >=60 05/31 8:39 AM CDT [facility] Not Available Not Available 06/03/2024 09:11:29 06/01/1905/31/2024 Compr ehens jacki metab olic 2000 panel - Serum or Plasm a interpretati on and review of laboratory results Abnorm al Not Available Not Available 09:11:29 11/10/1911/09/2020 XR, knee, 3 view No observ ation record ed. [email or web address] [facility] [address] [place], [address], 11/09/2020 14:30:25 Result Notes None recorded. Problems Name Problem SNOMED Code Status Onset Date Resolution Date Notes Provider Name and Address Organization Details Recorded Time Impacted cerumen of bilateral ears 84092702701 08816 Completed 201809/16/2019 Marietta Danielle MD Attn: Accounting ,[address] [place], [address] , [facility] 4 20:24:25 Acute right otitis media 894761537 Completed 201809/16/2019 SAMANTHA Robbins NP Attn: Accounting ,[address] [place], [address] , [facility] 0 12:15:45 [place] ia 90610012 Active 2023 Elif Draper MD Attn: Accounting ,[address] [place], [address] , [facility] 4 12:53:37 Impacted cerumen of bilateral ears [id number] 86381 Active 2023 Marietta Danielle MD Attn: Accounting ,[address], [place], [address] , [facility] 4 20:24:25 Sore throat [id number] Completed 09/16/2019 SAMANTHA Robbins NP Attn: Accounting ,[address] [facility], [place], [address] , [facility] 0 12:15:52 Acute otitis media [id number] Completed 09/16/2019 SAMANTHA Robbins NP Attn: Accounting ,[address] [facility], [place], [address] , [facility] 0 12:15:43 Streptoco ccal sore throat [id number] Completed 09/16/2019 SAMANTHA Robbins NP Attn: Accounting ,[address] [facility], [place], [address] , [facility] 0 12:15:54 Problem Notes None recorded. Procedures Surgical History Date Name Laterality Status Provider Name and Address Organization Details Recorded Time 2 Cerumen Removal completed Patti Sheehan MA [facility] 01/17/2022 16:33:05 procedure on finger completed Shelbi Bellamy MA [facility] 04/15/2023 10:36:44 Imaging Results None recorded. Procedure Notes None recorded. Medical Equipment None Reported. Allergies No known drug allergies Medications Name Sig Start Date Stop Date Status Note LastModified by Organization Details LastModified Time amoxicillin 500 mg capsule 09/25 completed Not Available Not Available Not Available doxycycline hyclate 100 mg capsule Take 1 capsule twice a day by oral route for 7 days. 05/22 completed Not Available Not Available Not Available cetirizine 10 mg tablet TAKE 1 TABLET BY MOUTH EVERY DAY 01/17 completed Not Available Not Available Not Available ofloxacin 0.3 % eye drops 09/27 completed Not Available Not Available Not Available hydrocodone 5 mg-acetamin ophen 325 mg tablet 01/17 completed Not Available Not Available Not Available Debrox 6.5 % ear drops Instill 5 drops 4 times a day by otic route as directed for 4 days. 2023 active Not Available Not Available Not Avai lable amoxicillin 500 mg tablet Take 1 tablet twice a day by oral route as directed for 10 days. 09/25 completed Not Available Not Available Not Available amoxicillin 875 mg tablet Take 1 tablet twice a day by oral route as directed for 10 days. 09/25 completed Not Available Not Available Not Available fluticasone propionate 50 mcg/actuati on nasal spray,suspe nsion [place] 1 spray every day by intranasa l route. 09/27 completed Not Available Not Available Not Available naproxen 500 mg tablet Take 1 tablet twice a day by oral route after meals. 07/20 completed Not Available Not Available Not Available amoxicillin 875 mg-bria smith clavulanate 125 mg tablet Take 1 tablet every 8 hours by oral route with meals for 10 days. 01/17 completed Not Available Not Available Not Available Vitals Date Recorded Body height Body mass index (BMI) Body weight Body temperature Respiratory rate Heart rate Oxygen saturation Oxygen saturation in Arterial blood by Pulse oximetry Systolic blood pressure Diastolic blood pressure Provider Name and Address Organization Details Last Updated DateTime 4 175.26 cm 21.3 kg/m2 83867.0 5 g 97.3 [degF] 16 /min 52 /min 98 % 98 % 141 mm[Hg] 87 mm[Hg] Shelbi Bellamy [place] [facility] 4 10:34:44 Date Recorded Body height Body mass index (BMI) Body weight Heart rate Oxygen saturation Oxygen saturation in Arterial blood by Pulse oximetry Body temperature Respiratory rate Systolic blood pressure Diastolic blood pressure Provider Name and Address Organization Details Last Updated DateTime 4 175.26 cm 22.4 kg/m2 77543.6 g 68 /min 97 % 97 % 98.2 [degF] 12 /min 124 mm[Hg] 74 mm[Hg] Shelbi Bellamy [place] [facility] 4 17:02:39 Date Recorded Body height Body mass index (BMI) [Percentile] Per age and sex Body mass index (BMI) Body weight Heart rate Respiratory rate Body temperature Systolic blood pressure Diastolic blood pressure Provider Name and Address Organization Details Last Updated DateTime 1 173.99 cm 51 % 22.2 kg/m2 84563.0 7 g 92 /min 16 /min 97.3 [degF] 108 mm[Hg] 60 mm[Hg] Janette Antony MA [facility] 1 16:08:20 Date Recorded Body height Heart rate Respiratory rate Body mass index (BMI) [Percentile] Per age and sex Body mass index (BMI) Body weight Body temperature Systolic blood pressure Diastolic blood pressure Provider Name and Address Organization Details Last Updated DateTime 1 173.99 cm 60 /min 16 /min 41 % 21.7 kg/m2 89624.5 9 g 98 [degF] 114 mm[Hg] 64 mm[Hg] Janette Antony MA [facility] 1 10:40:39 Date Recorded Body weight Body mass index (BMI) [Percentile] Per age and sex Body mass index (BMI) Body height Heart rate Respiratory rate Body temperature Systolic blood pressure Diastolic blood pressure Provider Name and Address Organization Details Last Updated DateTime 2 43083.5 9 g 28 % 21.4 kg/m2 175.26 cm 62 /min 20 /min 98.3 [degF] 112 mm[Hg] 80 mm[Hg] Shilpa Vázquez MA [facility] 2 15:28:36 Social History Question Answer Notes LastModified by Organizat ion Details LastModified Time Tobacco Smoking Status Never Smoker Janette Antony MA null, [facility] 04/19/2015 11:19:53 Animal Exposure? Yes Dogs Informat ion not available 06/14/2015 Are You Blind Or Do You Have Difficulty Seeing? No Information not available 06/26/2020 What Is Your Level Of Caffeine Consumption? Occasional Information not available 06/14/2015 In The 14 Days Before Symptom Onset, Have You Had Close Contact With A Laboratory-confir med COVID-19 While That Case Was Ill? No Information not available 06/26/2020 In The 14 Days Before Symptom Onset, Have You Had Close Contact With A Person Who Is Under Investigation For COVID-19 While That Person Was Ill? No Information not available 06/26/2020 Have You Been To An Area Known To Be High Risk For COVID-19? No Information not available 06/26/2020 Are You Deaf Or Do You Have Serious Difficulty Hearing? No Information not available 06/26/2020 What Type Of Diet Are You Following? REGULAR Information not available 06/14/2015 Have There Been Any Changes To Your Family Or Social Situation? No Information no t available 06/14/2015 Are There Any Guns Present In Your Home? Yes Information not available 06/14/2015 What Is Your Home Situation? Both Parents Information not available 06/14/2015 Do You Use Insect Repellent Routinely? No Information not available 06/14/2015 Car Seat Type Or Seat Belt? Seat Belt Information not available 06/14/2015 Parent Involvement? Both Parents Involved Information not available 06/14/2015 Riding In Car Front Seat? Yes Information not available 06/14/2015 What Was The Date Of Your Most Recent Tobacco Screening? 05/23/2023 Information not available 05/23/2023 How Many Children Do You Have? 1 Information not available 06/26/2020 What Is Your Parents' Marital Status? Information not available 06/14/2015 Do You Use Protection During Sex? Usually Information not available 06/26/2020 What Is Your Relationship Status? Single Information not available 06/26/2020 What Is The Name Of Your School? [employer] Information not available 11/09/2020 Do You Use Your Seat Belt Or Car Seat Routinely? Yes Information not available 06/26/2020 Are You Sexually Active? Yes Information not available 06/26/2020 Do You Have Any Siblings? 1 Brother 1 Sister Information not available 06/14/2015 Do You Have Smoke And Carbon Monoxide Detectors In Your Home? Yes Information not available 06/14/2015 Are You Passively Exposed To Smoke? No Information no t available 06/14/2015 How Much Tobacco Do You Smoke? No Information not available 11/17/2017 What Types Of Sporting Activities Do You Participate In? Baseball,footb all Information not available 06/14/2015 Do You Use Sunscreen Routinely? No Information not available 06/14/2015 Has Tobacco Cessation Counseling Been Provided? No Information not available 04/15/2023 On What Date Was Tobacco Cessation Counseling Provided? 01/17/2022 [email or web address] Information not available 01/17/2022 How Many Years Have You Smoked Tobacco? 0 Information not available 11/17/2017 Year In School 10 Informatio n not available 11/17/2017 Sex: Male Functional Status Question Answer Note LastModified by Organizat ion Details LastModified Time Do you use any illicit or recreational drugs? Yes smokes marijuana Information not available 06/26/2020 Do you or have you ever used any other forms of tobacco or nicotine? Yes Information not available 04/15/2023 What is your level of alcohol consumption? Occasional Information not available 06/26/2020 Are you able to care for yourself? Yes Information not available 06/26/2020 Do you or have you ever used e-cigarettes or vape? Current user of electronic cigarettes Information not available 06/26/2020 What is your exercise level? Heavy Information not available 06/14/2015 Mental Status Question Answer Note LastModified by Organization D etails LastModified Time Do you feel stressed (tense, restless, nervous, or anxious, or unable to sleep at night)? [id number] Information not available 06/26/2020 Family History Relationship Description Onset Age of this Age Resolved Age Notes LastModified by Organization Details LastModified Time Father No current problems or disability estahlma Not available 11/17 10:03:21 Mother No current problems or disability estahlma Not available 11/17 10:03:21 Notes:none per dad Medical History Condition Response Coronary Artery Disease N Other N Atrial Fibrillation N High Blood Pressure N Blood Diseases N Ear or Hearing Problems N Thyroid Problems N Kidney or Bladder Problems N Depression N COPD N Blood Clots N GI Problems N Developmental or Behavioral Disorders N Skin Problems N Premature N Anemia N Constipation N Heart Attack (OR) N Anxiety Disorder N Diabetes N Muscle, Joint, or Bone Problems N Bedwetting N Vision or Eye Problems N Heart Problems/Murmur N Seizures/Epilepsy N Head Injury/Concussion N Acid Reflux (GERD) N Cancer N Stroke N Asthma N Allergies N ADHD N Bladder or Kidney Problems N High Cholesterol N Hepatitis N Liver Disease N Headaches N Chicken Pox N Heart Failure N Autism Spectrum Disorder (ASD) N Osteoporosis N Immunizations Vaccine Type Date Status Note Provider Nam e and Address Organization Details Recorded Time Hep A, unspecified formulation 8 completed RELL STEPHENS MD Attn: [facility] [facility], [place], [address], [place] [facility] 01/17/2022 16:15:11 HPV9 7 completed Not Available [facility] 03/06/2019 02:33:55 Hep B, adolescent or pediatric 2 completed Janette [place], [place] [facility] 09/01/2014 09:59:15 IPV 3 completed [place] [facility] 09/01/2014 09:59:15 Hib, unspecified formulation 3 completed [place] [facility] 09/01/2014 09:59:15 Tdap 4 completed [place] [facility] 09/01/2014 09:59:15 DTP 3 completed MARJORIE [place] [facility] 09/01/2014 09:59:15 pneumococcal conjugate PCV 7 3 completed [place] [facility] 09/01/2014 09:59:15 IPV 4 completed [place] [facility] 09/01/2014 09:59:15 DTP 3 completed [place]ette [place] [facility] 09/01/2014 09:59:15 pneumococcal conjugate PCV 7 3 completed [place] [facility] 09/01/2014 09:59:15 DTP 3 [place] [facility] 09/01/2014 09:59:15 IPV 6 completed [place] [facility] 09/01/2014 09:59:15 meningococcal ACWY, unspecified formulation 4 completed [place] [facility] 09/01/2014 09:59:15 Hep B, adolescent or pediatric 3 completed [place] [facility] 09/01/2014 09:59:15 varicella 6 completed [place] [facility] 09/01/2014 09:59:15 Hib, unspecified formulation 3 completed [place] [facility] 09/01/2014 09:59:15 DTaP, unspecified formulation 4 completed [place] [facility] 09/01/2014 09:59:15 Hep A, ped/adol, 2 dose 5 completed [place] [facility] 09/01/2014 09:59:15 Hep B, adolescent or pediatric 3 completed [place] [facility] 09/01/2014 09:59:15 MMR 4 completed [place] [facility] 09/01/2014 09:59:15 MMR 6 completed [place] [facility] 09/01/2014 09:59:15 IPV 3 completed [place] [facility] 09/01/2014 09:59:15 Hib, unspecified formulation 4 completed [place] [facility] 09/01/2014 09:59:15 DTaP, unspecified formulation 6 completed [place] [facility] 09/01/2014 09:59:15 varicella 4 [place] [facility] 09/01/2014 09:59:15 pneumococcal conjugate PCV 7 3 completed [place]IE [place] [facility] 09/01/2014 09:59:15 Hib, unspecified formulation 3 completed MARJORIE [place] [facility] 09/01/2014 09:59:15 HPV9 8 completed Not Available [facility] 03/06/2019 02:35:59 Influenza, split virus, quadrivalent, PF 8 completed Not Available [facility] 03/06/2019 02:36:24 meningococcal B, OMV 9 completed Not Available [facility] 03/06/2019 02:42:32 meningococcal MCV4P 9 completed Not Available [facility] 03/06/2019 02:41:59 meningococcal B, OMV 9 completed Not Available [facility] 03/06/2019 02:37:37 Past Encounters Encounter ID Performer Location Encounter Start Date Encounter Closed Date Diagnosis/Indication Diagnosis SNOMED-CT Code Diagnosis ICD10 Code Diagnosis Note [id number] MD [facility] [address] [place] [address] 05/20/2014 15:04:39 05/20/2014 16:18:17 Sore throat 665265547 reassure only, NEG strep (dad has strep POS today) [id number] MD [facility] [address] [place] [address] 09/01/2014 15:57:29 09/01/2014 18:35:38 Well child 321188998 IMM is UTD, will give HPV next yesr [id number] MD [facility] [address] [place] [address] 01/19/2015 14:27:55 01/19/2015 16:21:58 Acute otitis media 3554715 H66.001 [id number] MD [facility]) [address] [place] [address] 04/19/2015 10:46:13 04/20/2015 14:14:06 Streptococcal sore throat 11468246 J02.0 [id number] MD [facility] ([facility]) [address] [place] [address] 06/14/2015 15:02:07 06/14/2015 15:38:45 Streptococcal sore throat 68647973 J02.0 strep test strong POS, recurrent, 2nd time in 7 wks [id number] MD Harika Armijo (Peds) [address] [place] [address] 09/26/2015 14:41:14 09/28/2015 18:35:19 Well child 465283807 Z00.129 IMM is UTD, will give HPV next year 08--16 HPV ordered but it's N/A today. [id number] MD Harika Armijo (Peds) [address] [place] [address] 03/11/2016 16:36:14 03/13/2016 15:06:57 Upper respiratory infection 95170468 J06.9 benign, flu likely [id number] MD Harika Montero (Peds) [address] [place] [address] 04/12/2016 13:29:53 04/15/2016 18:00:09 Sore throat 387591715 J02.9 Streptococ cely sore throat 61243428 J02.0 [id number] MD Harika Armijo (Peds) [address] [place] [address] 09/25/2016 09:41:39 09/25/2016 13:35:24 Well child 562157152 Z00.129 IMM is UTD, will give HPV next year 08-09-16 HPV ordered but it's N/A today. [id number] MD Harika Armijo 14 [facility] [address] [facility] [place] [address] 11/17/2017 09:49:44 11/17/2017 12:51:46 Well child 375022819 Z00.129 IMM is UTD, will give HPV next year 08-09-16 HPV ordered but it's N/A today.10-0 1-18 HPV/Flu vac [id number] MD Harika Armijo 14 [facility] [address] [facility] [place] [address] 12/26/2017 14:27:56 12/29/2017 16:53:40 Lower back injury 819145772 S39.92XA [id number] MD Harika Armijo [address] [place] [address] 06/30/2018 14:31:08 07/01/2018 13:28:40 Acute right otitis media 182246763 H66.91 [id number] MD Harika Armijo [address] [place] [address] [place] [address] 07/20/2018 15:40:45 07/21/2018 10:23:12 Well child 790263341 Z00.129 IMM is UTD, will give HPV next year 09-25- HPV ordered but it's N/A today.10-0 1-18 HPV/Fluzon e, 07-21-18 Vaccines given Impacted c erumen of bilateral ears 0556159284 222635 H61.23 Cerumen removal Rt only..not effective Acute righ t otitis media 475346400 H66.91 extra course of Augmentin [id number] MD Harika Montero [address] [place] [address] 08/27/2018 15:30:46 08/28/2018 12:02:03 Active or passive immunization 551114873 Z23 [id number] MD Harika Montero [address] [place] [address] 09/16/2019 09:39:45 09/20/2019 11:51:00 Allergic rhinitis 00300905 J30.9 -if symptoms persist or get worse, please call or return-Dis cussed covid testing/sy mptoms.-Ta ke medication as discussed. [id number] MD Harika Montero [address] [place] [address] [place] [address] 09/28/2019 10:07:28 09/29/2019 13:02:56 At increased risk of sexually transmitted infection 400545301 Z20.2 -Will get lab work done.-No known exposure. Will test and if positive will treat. Pt agreeable to plan.-Enco uraged condom use and safe sex. Pt states understand ing. [id number] María Elena Garibay-MD Harika Hdz 14 P[facility]S [address] [facility] [place] [address] 12/15/2019 10:03:35 12/16/2019 21:26:35 Impacted cerumen of bilateral ears 7056726737 094545 H61.23 -Use as directed-W ill call clinic if no improvemen t in symptoms Allergic rhinitis 752063 04 J30.9 -if symptoms persist or get worse, please call or return-Dis cussed covid testing/sy mptoms. Declined at this time.-Take medication as discussed. [id number] DUSTIN De Anda 14 PEDS [address] [facility] [address] [place] [address] 06/26/2020 15:56:41 06/29/2020 16:07:38 At increased risk of sexually transmitted infection 833466766 Z20.2 -Will get lab work done.-No known exposure. Will test and if positive will treat. Pt agreeable to plan.-Enco uraged condom use and safe sex. Pt states understand ing. Adult heal th examination 635906145 Z00.00 -Get lab work done as discussed. We will call you with the results -safety discussed with patient -Pt immunizati ons UTD -Will make eye apt -Diet and exercise discussed -Will make dental apt. -Counseled on smoking and alcohol cessation. History an d physical examination, sports participation 209178895 Z02.5 -Cleared Diet education 93544778 Z71.3 -limit sugary foods in diet. Eat lots of fruits and vegetables . -5,4,3,2,1 discussed: 1 or more hours of physical activity a day. 2 or less hours of screen time a day. 3 servings of low-fat dairy a day. 4 servings of water a day. 5 servings of fruits and vegetables a day. Exercises education, guidance, and counseling 804777691 Z71.82 limit screen time to less than 2 hours per day. Normal bod y mass index 89227553 Z68.22 Smoker 32426291 F17.200 Marijuana user 187295135 F12.90 Pain in right knee 15350 75165 61167 M25.561 -Pt would like to complete track season and return if pain is still persistant . [id number] DUSTIN De Anda 14 PEDS [address] [facility] [place] [address] 11/09/2020 10:24:58 11/13/2020 16:54:27 Pain in right knee 7399474054 50478 M25.561 -To complete xrays, we will call with results-Wi ll refer to ortho and PT-Pt to alert clinic if any new of worsening pain-Can take ibuprofen and wrap in wendy if pain [id number] MD Harika JUNE 14 IM [address] [facility] [place] [address] 01/17/2022 15:01:21 01/23/2022 11:25:19 Impacted cerumen of bilateral ears 5450153164 508702 H61.23 cerumen impaction noted. Irrigation performed on the R side, and some cleaning done on the L. Pt would benefit from debrox longer term. Discussed w/ pt not putting anything into his ears. Will have him f/u in a few months for [facility] ent of care. [id number] MD Harika Tapia 14 [address] [facility] [place] [address] 04/15/2023 10:28:36 04/22/2023 09:56:00 Venereal disease screening 991266822 Z11.3 see A&P under adult health examinatio n Adult [facility] examination 820639958 Z00.00 - 29 yo M with no previous PMH presents for annual visit- no acute concerns at this time- pt's vitals significan t for bradycardi a, is not athletic so is an abnormal finding- EKG showed sinus bradycardi a with no other abnormalit ies, will order echo at this time also- pt's last blood work showed elevated cholestero l will recheck at this time- will also do an STI/STD screening at this time, pt is asymptomat ic and denies risky sexual behaviours Bradycardia 27721446 R00 .1 see A&P under adult health examinatio n [id number] MD Harika Ricketts 14 IM [address] [facility] [place] [address] 05/23/2023 16:53:55 06/09/2023 15:08:01 Impacted cerumen of bilateral ears 8747871250 532502 H61.23 Longstandi ng history of excessive cerumen production . Last cleared by pediatrici an over 1 year ago. Causing ear fullness, pain, and decreased hearing. Pt denies instrument ation. Attempted to clear earwax with curette with little success. Through shared decision making, plan to continue acute management in resident clinic and establish with ENT for long-term management . - debrox drops QID x4 days to soften wax- return to office in 4 days for ear lavage- referral to ENT for chronic management Health Concerns Section Related Observation LastModified by Organization Detai ls LastModified Time None Recorded Concern Status LastModified by Organization Details LastModified Time None Recorded Advance Directives Directive None Recorded Payers Insurance Date Sequence Insurance Name Policy Number Policy Sue Covered Member ID Sue Member ID Guarantor Name 01/17/2022 1 [facility] [id number] Tesfaye Reece [id number] Reginald Reece 01/17/2022 2 [facility] [id number] Tesfaye Reece [id number] Reginald Reece 01/19/2015 1 [facility] (POS) [id number] Tesfaye Reece [id number] Reginald Reece 03/11/2016 1 [facility] (PPO) [id number] Tesfaye Reece [id number] Reginald Jose G Reece 11/07/2020 1 [facility] (PPO) [id number] Tesfaye Reece [id number] Reginald Reece 05/31/2024 1 [facility] [id number] Maranda Gonzalez [id number] Reginald Reece Notes Date Note Type Note Provider Name and Address Organization Details Recorded Time 06/26/2020 text/html Pt here for spor ts physical. Reports occassional R knee pain. He is actively seeing his review trainer at school. He runs track. Reports pain sometimes after running. No injury to area. He has been able to participate without issues. Aleksander Whaley MD Attn: [place], [address], [facility] 06/29/2020 14:01:33 11/09/2020 text/html KneeReported bypatient.Location:r ight Quality:aching Severity:mild; pain level 0/10; worst pain 6/10 Duration:1 years Associated Symptoms:no numbness; no tingling; no swelling; no redness; no warmth; no ecchymosis; no catching/locking; no popping/clicking; no buckling; no grinding; no instability; no fever; no chills; no weight loss; no change in bowel/bladder habits;weakness;radi ation down leg Pt here today for R knee pain. Pt reports R knee pain for one year. Pt denies any instability. Feels pain almost daily. Feels pain with stairs. Pt has pain with squats. Pt has tried stretching. SAMANTHA Robbins NP Attn: [facility],[address] [place], [address], [facility] 11/13/2020 17:04:24 01/17/2022 text/html pt is a 21 yo M who presents for decreased hearing. States that he has a h/o of this and that he has been on ear drops in the past b/c the ear wax nancy build up and cause him to not be able to hear. Has been off of these drops for a while now and has noted that he cannot hear now in his R ear. worse on the R side, does not use q-tips, wears head phones, and nothing seems to make this better. Denies ear pain, fever, NUNEZ, light headedness, neck pain, blurred vision, sinus tenderness, CP, SOB, NVDC. RELL STEPHENS MD Attn: [facility] [place], [address], [facility] 01/29/2022 11:06:22 04/15/2023 text/html 23 yo male here for annual exam, has no acute concerns or complaints at this time. Currently not in education or employed but is looking for work.Lives with his mom and feels safe at home, is currently sexually active uses condoms. Endorses marijuana use and nothing else. Negative ROS. Elif Draper MD Attn: [facility],[address] [place], [address], [facility] 04/21/2023 12:53:47 05/23/2023 text/html Reginald is a 23 ye ar old with no significant medical history here for ear fullness and decreased hearing. Also with pain in right ear starting 3 days ago. He reports he has dealt with overproduction of earwax and regularly had his ears cleaned as a child. Also told he has narrow ear canals. Most recently cleaned over 1 year ago. Does not use Q-tips or other objects, sometimes uses fingers to wipe wax near outside. Occasionally uses earwax softening drops. No systemic sick symptoms. Aleksander Whaley MD Attn: [employer],[address] [place], [address], [facility] 05/26/2023 08:02:11
--- OUTSIDE RECORDS SUMMARY | 2024-08-02 18:04 | XMS_ITS | Clinical Summary ---
Author Organization [facility] Address [address] [place] [address] Phone Care Team Providers Care Stakeholder Manager Name Role Phone Aleksander Whaley MD Primary Care Provider [phone] Allergies No known active allergies Medications No known medications Active Problems Problem Noted Date Diagnosed Date Cellulitis of left upper extremity 05/26/2024 Elevated LFTs 05/26/2024 Dehydration 05/26/2024 Impacted cerumen of right ear 08/27/2018 Acquired stenosis of both external ear canals Impacted cerumen of left ear 07/28/2018 Impacted cerumen, bilateral 07/28/2018 Adjustment disorder 06/14/2017 Encounters Date Type Department Care Team Description 06/09/2024 Results Follow-Up [facility] [address] [place] [phone] Danny Rodgers MD SYPHILIS IGG/IGM W/REFLEX, HIV 1 & 2 ANTIBODY & ANTIGEN SCREEN, CHLAMYDIA & GC DNA PROBE > 12 06/08/2024 3:00 PM CDT Office Visit [facility] [address] [place] [id number] Danny Rodgers MD Cellulitis of left upper extremity (Primary Dx); Possible exposure to STI Discharge Disposition: Discharged to home or Selfcare 06/08/2024 Travel 05/31/2024 Telephone [facility] [address] [place] [phone] Provider, None Post-Hospital Follow-up 05/26/2024 7:43 PM CDT - 05/31/2024 3:10 PM CDT Hospital Encounter [facility] Med Surg [address] [address] [place] [address] Kareem Min MD Dianati, Behfar, MD Krishna, Naveen Kumar, MD Cellulitis of left upper extremity Discharge Disposition: Discharged to home or Selfcare 05/26/2024 Travel from Last 3 Months Immunizations Immunization Administration Dates Next Due DTAP VACCINE, UNSPECIFIED FORMULATION 02/04/2006 ,07/28/2003 DTP Vaccine 2002,2002,2002 Hepatitis A Vaccine, Pediatric/adolescent, 2 Dose Schedule 02/05/2005 Hepatitis A Vaccine,unspecif ied Formulation 07/07/2007 Hepatitis B Vaccine, Pediatric/adolescent 2002,2002,2002 Hib Vaccine,unspecified Formulation 07/18,2002,2002,04/07 Human Papillomavirus (HPV) 9 -valent Vaccine 11/17/2017,09/25/2016 Inactivated Polio Vaccine 02/04/2006,03/2003,2002,04/07 Influenza Vaccine, Quadrivalent, PF 11/17/2017 MMR Vaccine 02/04/2006,02/18/2003 Meningococcal Group B OMV 08/27/2018,07/20/2018 Meningococcal Vaccine 07/20/2018 Meningococcal Vaccine, Unspe cified Formulation 09/16/2013 Pneumococcal Vaccine Peds - 7 Valent 2002, 2002,2002 TDAP Vaccine 05/24/2024,09/16/2013 Varicella Vaccine Live 02/04/2006,07/28/2003 Family History Medical History Relation Name Comments No Known Problems Father Tesfaye No Known Problems Mother Maranda Relation Name Status Comments Father Tesfaye Alive Mother Maranda Alive Social History Tobacco Use Types Packs/Day Years Used Date Smoking Tobacco: Never Smokeless Tobacco: Former Tobacco Cessation:Counseling Given: No Alcohol Use Standard Drinks/Week Comments Yes 0 (1 standard drink = 0.6 oz pur e alcohol) Occassional [facility] Utilities Answer Date Recorded In the past 12 months has th e electric, gas, oil, or water company threatened to shut off services in your home? No 05/26/2024 Social Connection and Isolation Panel Answer Date Recorded In a typical week, how many times do you talk on the phone with family, friends, or neighbors? Patient declined 05/26/2024 How often do you get togethe r with friends or relatives? Patient declined 05/26/2024 How often do you attend pentecostalism or holiness serv ices? Patient declined 05/26/2024 Do you belong to any clubs o r organizations such as pentecostalism groups, unions, fraternal or athletic groups, or school groups? Patient declined 05/26/2024 How often do you attend meet ings of the clubs or organizations you belong to? Patient declined 05/26/2024 Are you , , di vorced, , never , or living with a partner? Patient declined 05/26/2024 AUDIT-C Answer Date Recorded Q1: How often do you have a drink containing alc ohol? Monthly or less 05/26/2024 Q2: How many drinks containi ng alcohol do you have on a typical day when you are drinking? 1 or 2 05/26/2024 Q3: How often do you have si x or more drinks on one occasion? Less than monthly 05/26/2024 Overall Financial Resource Strain (CARDIA) Answe r Date Recorded How hard is it for you to pa y for the very basics like food, housing, medical care, and heating? Not hard at all 05/26/2024 [facility]ational Stress Questionnaire Answer Date Recorded Do you feel stress - tense, restless, nervous, or anxious, or unable to sleep at night because your mind is troubled all the time - these days? Not at all 05/26/2024 Exercise Vital Sign Answer Date Recorde d On average, how many days pe r week do you engage in moderate to strenuous exercise (like a brisk walk)? 3 days 05/26/2024 On average, how many minutes do you engage in exercise at this level? 30 min 05/26/2024 Hunger Vital Sign Answer Date Recorded Within the past 12 months, y ou worried that your food would run out before you got the money to buy more. Never true 05/27/19 25 Within the past 12 months, t he food you bought just didn't last and you didn't have money to get more. Never true 05/26/2024 PRAPARE - Transportation Answer Date Re corded In the past 12 months, has l ack of transportation kept you from medical appointments or from getting medications? No 10/2024 In the past 12 months, has l ack of transportation kept you from meetings, work, or from getting things needed for daily living? No 05/26/2024 Housing Stability Vital Sign Answer Jarek e Recorded In the last 12 months, was t here a time when you were not able to pay the mortgage or rent on time? No 05/26/2024 In the past 12 months, how m any times have you moved where you were living? 0 05/26/2024 At any time in the past [facility], were you homeless or living in a detention (including now)? No 05/26/2024 Sexually Active Control Partners Comments Not Currently Female Sex and Gender Information Value Date Recorded Sex Assigned at Not on file Legal Sex Male 10:56 PM CDT Gender Identity Not on file Sexual Orientation Not on file Last Filed Vital Signs Vital Sign Reading Time Taken Comments Blood Pressure 116/80 06/08/2024 3:11 PM CDT Pulse 86 06/08/2024 3:11 PM CDT Temperature 36.6 C (97.8 F) 06/08/2024 3:11 PM CDT Respiratory Rate 16 06/08/2024 3:11 PM CDT Oxygen Saturation 97% 06/08/2024 3:11 PM CDT Inhaled Oxygen Concentration - - Weight 71.2 kg (157 lb) 06/08/2024 3:11 PM CDT Height 175.3 cm (5' 9) 06/08/2024 3:11 PM CDT Body Mass Index 23.18 06/08/2024 3:11 PM CDT Plan of Treatment Health Maintenance Due Date Last Done Comments SARS-COV-2 Immunization ( season) 2023 Influenza Immunization (Season Ended) 2024 11/17/2017 DTaP/Tdap/Td Immunization (8 - Td or Tdap) 05/24/2034 05/24/2024, 09/16/2013, 02/04/2006, Additional history exists Respiratory Syncytial Virus (RSV) Immunization (Adult) (1 - 1-dose 75+ series) 2077 Hepatitis B Immunization Completed 003, 2002, 2002 Pneumococcal Immunization Combined Aged Out 2002, 2002, 2002 No longer eligible based on patient's age to complete this topic Measles Mumps Rubella (MMR) Immunization Discontinued 02/04/2006, 02/18/2003 Polio (IPV) Immunization Discontinued 006, 02/18/2003, 2002, Additional history exists Varicella Immunization Discontinued 02/04/2006, 2003 Hepatitis A Immunization Discontinued 07/07/2007, 01/18 Human Papillomavirus (HPV) Immunization Completed 11/17/2017, 09/25/2016 Meningococcal Immunization (ACWY) Completed 07/20/2018, 09/16/2013 Meningococcal B Immunization Completed 08/27/2018, 07/20/2018 TdaP Immunization Discontinued 05/24/2024, 09/16/2013 Hepatitis C Virus (HCV) Screening Completed 05/26/2024 Rotavirus Immunization Aged Out No lo nger eligible based on patient's age to complete this topic Procedures Procedure Name Priority Date/Time Associated Diagnosis Comments HIV 1 & 2 ANTIBODY & ANTIGEN SCREEN Routine 06/08/2024 3:54 PM CDT Possible exposure to STI SYPHILIS IGG/IGM W/REFLEX Routine 06/08/2024 3:54 PM CDT Possible exposure to STI CHLAMYDIA & GC DNA PROBE Routine 06/08/2024 3:54 PM CDT Possible exposure to STI CHLAMYDIA & GC DNA PROBE > 12 Routine 06/08/2024 3:54 PM CDT Possible exposure to STI VANCOMYCIN Timed 05/31/2024 6:55 AM CDT CBC WITH AUTO DIFFERENTIAL Routine 05/31/2024 6:54 AM CDT COMPLETE BLOOD COUNT (CBC) WITH DIFF Routine 05/31/2024 6:54 AM CDT CMP (COMPREHENSIVE METABOLIC PANEL) Timed 05/31/2024 6:54 AM CDT VANCOMYCIN Timed 05/30/2024 4:10 AM CDT CBC WITH AUTO DIFFERENTIAL Routine 05/30/2024 4:09 AM CDT COMPLETE BLOOD COUNT (CBC) WITH DIFF Routine 05/30/2024 4:09 AM CDT CMP (COMPREHENSIVE METABOLIC PANEL) Routine 05/30/2024 4:09 AM CDT CMP (COMPREHENSIVE METABOLIC PANEL) Routine 05/29/2024 4:24 AM CDT CBC WITH AUTO DIFFERENTIAL Routine 05/29/2024 4:23 AM CDT COMPLETE BLOOD COUNT (CBC) WITH DIFF Routine 05/29/2024 4:23 AM CDT BARTONELLA AB PANEL, IGG & IGM, BOONE Routine 05/29/2024 4:23 AM CDT CBC WITH AUTO DIFFERENTIAL Routine 05/28/2024 5:10 AM CDT VANCOMYCIN Timed 05/28/2024 5:10 AM CDT CMP (COMPREHENSIVE METABOLIC PANEL) Routine 05/28/2024 5:10 AM CDT COMPLETE BLOOD COUNT (CBC) WITH DIFF Routine 05/28/2024 5:10 AM CDT CBC WITH AUTO DIFFERENTIAL STAT 05/27/2024 4:34 AM CDT CMP (COMPREHENSIVE METABOLIC PANEL) STAT 05/27/2024 4:34 AM CDT COMPLETE BLOOD COUNT (CBC) WITH DIFF STAT 05/27/2024 4:34 AM CDT MRSA NASAL PCR Routine 05/26/2024 11:32 PM CDT MRSA NASAL BY PCR Routine 05/26/2024 11: [address] LEFT ELBOW W CONTRAST STAT 05/26/2024 10:16 PM CDT URINALYSIS REFLEX IF INDICATED BY ABNORMAL RESULTS STAT 05/26/2024 8:52 PM CDT GOLD TOP TUBE STAT 05/26/2024 8:39 PM CDT BLUE TOP TUBE STAT 05/26/2024 8:39 PM CDT CBC WITH AUTO DIFFERENTIAL STAT 05/26/2024 8:39 PM CDT BARTONELLA AB PANEL, IGG & IGM, BOONE Routine 05/26/2024 8:39 PM CDT MONO TEST (INFECTIOUS MONONUCLEOSIS) Routine 05/26/2024 8:39 PM CDT ERYTHROCYTE SEDIMENTATION RATE (ESR) STAT 05/26/2024 8:39 PM CDT C-REACTIVE PROTEIN (CRP) QUANT STAT 05/26/2024 8:39 PM CDT HEPATITIS PANEL ACUTE (AHP) STAT 05/26/2024 8:39 PM CDT EXTRA TUBES STAT 05/26/2024 8:39 PM CDT CMP (COMPREHENSIVE METABOLIC PANEL) STAT 05/26/2024 8:39 PM CDT COMPLETE BLOOD COUNT (CBC) WITH DIFF STAT 05/26/2024 8:39 PM CDT CULTURE, BLOOD STAT 05/26/2024 8:39 PM CDT LACTIC ACID (LACTATE) STAT 05/26/2024 8:28 PM CDT CULTURE, BLOOD STAT 05/26/2024 8:26 PM CDT from Last 3 Months Results * HIV 1 & 2 ANTIBODY & ANTIGEN SCREEN (06/08/2024 3:54 PM CDT) [facility] HIV 1 & 2 ANTIBODY & ANTIGEN SCREEN NON DETECTED NON DETECTED 06/08/2024 9:28 PM CDT [facility] Blood Venipuncture / Unknown 06/08/2024 3:54 PM CDT 06/08/2024 4:35 PM CDT us Danyn Rodgers MD LAB SEND OUTS Final Result Performing Organization Address [facility] Co de Phone Number [facility] [address] [place] [address], [place] * CHLAMYDIA & GC DNA PROBE > 12 (06/08/2024 3:54 PM CDT) [facility] CHLAMYDIA DNA NEGATIVE NEGATIVE 06/09/2024 12:18 AM CDT [facility] Comment: Presumed negative for C. trachomatis. A negative result does not preclude C. trachomatis infection because results are dependent on adequate specimen collection, absence of inhibitors, and sufficient DNA to be detected. This test was performed using TONY 5800 Real Time PCR. GC DNA NEGATIVE NEGATIVE 06/09/2024 12:18 AM CDT [facility] Comment: Presumed negative for N. gonorrhoeae. A negative result does not preclude N. gonorrhoeae infection because results are dependent on adequate specimen collection, absence of inhibitors, and sufficient DNA to be detected. This test was performed using TONY 5800 Real Time PCR. Other URINE / Unknown Non-Phlebotomy Collection / Unknown 06/08/2024 3:54 PM CDT 06/08/2024 4:36 PM CDT us Danny Rodgers MD MICROBIOLOGY - GENERAL ORDERA BLES Final Result Performing Organization Address [facility]/ZIP Co de Phone Number [facility] [address] [place] [address], [place] * SYPHILIS IGG/IGM W/REFLEX (06/08/2024 3:54 PM CDT) Pathologist [facility] SYPHILIS IGG/IGM Nonreactive Nonreactive 06/08/2024 9:25 PM CDT [facility] Blood Venipuncture / Unknown 06/08/2024 3:54 PM CDT 06/08/2024 4:35 PM CDT Danny Rodgers MD IMMUNOLOGY ORDERABLES Final R esult [facility] [address] [place] [address], * (ABNORMAL) Vancomycin Level (05/31/2024 6:55 AM CDT) Only the most recent of3 resultswithin the time period is included. [facility] VANCOMYCIN RESULT 11(L) 20 - 40 mcg/mL 05/31/2024 7:24 AM CDT [facility] Blood Venipuncture / Unknown 05/31/2024 6:55 AM CDT 05/31/2024 7:04 AM CDT Narrative [facility] - 05/31/2024 7:24 AM CDT CALL PHARMACY FOR THERAPEUTIC RANGE. Harry Patterson MD CHEMISTRY ORDERABLES Fin al Result Performing Organization Address City/[facility]/ZIP Co de Phone Number [facility] [address] [place] [address] * (ABNORMAL) CBC with Auto Differential (05/31/2024 6:54 AM CDT) Only the most recent of6 resultswithin the time period is included. [facility] WBC 5.06 4.00 - 12.00 10(3)/mcL 05/31/2024 7:08 AM CDT [facility] RBC 4.82 4.40 - 5.80 10(6)/mcL 05/31/2024 7:08 AM CDT [facility] HEMOGLOBIN (HGB) 15.1 13.0 - 16.5 g/dL 05/31/2024 7:08 AM CDT [facility] HEMATOCRIT (HCT) 44.3 38.0 - 50.0 % 05/31/2024 7:08 AM CDT [facility] MCV 91.9 82.0 - 96.0 fL 05/31/2024 7:08 AM CDT [facility] MCH 31.3 26.0 - 32.0 pg 05/31/2024 7:08 AM CDT [facility] MCHC 34.1 31.0 - 36.0 g/dL 05/31/2024 7:08 AM CDT [facility] PLATELET COUNT 205 140 - 440 10(3)/mcL 05/31/2024 7:08 AM CDT [facility] RDW 11.9 11.8 - 15.5 % 05/31/2024 7:08 AM CDT [facility] MPV 10.2 8.0 - 12.6 fL 05/31/2024 7:08 AM CDT [facility] NEUTROPHILS 41.5 40.0 - 68.0 % 05/31/2024 7:08 AM CDT [facility] LYMPHOCYTES 32.0 19.0 - 49.0 % 05/31/2024 7:08 AM CDT [facility] MONOCYTES 17.8(H) 3.0 - 13.0 % 05/31/2024 7:08 AM CDT [facility] EOSINOPHILS 7.3 0.0 - 8.0 % 05/31/2024 7:08 AM CDT [facility] BASOPHILS 1.4(H) 0.0 - 1.0 % 05/31/2024 7:08 AM CDT [facility] ABSOLUTE NEUTROPHILS 2.10 1.40 - 5.30 10(3)/mcL 05/31/2024 7:08 AM CDT [facility] ABSOLUTE LYMPHOCYTES 1.62 0.90 - 3.30 10(3)/mcL 05/31/2024 7:08 AM CDT [facility] ABSOLUTE MONOCYTES 0.90 0.10 - 0.90 10(3)/mcL 05/31/2024 7:08 AM CDT [facility] ABSOLUTE EOSINOPHIL 0.37 0.00 - 0.50 10(3)/mcL 05/31/2024 7:08 AM CDT [facility] ABSOLUTE BASOPHILS 0.07 0.00 - 0.10 10(3)/mcL 05/31/2024 7:08 AM CDT [facility] NRBC PER 100 WBC 0 06/01/19 7:08 AM CDT [facility] Blood Venipuncture / Unknown 05/31/2024 6:54 AM CDT 05/31/2024 7:04 AM CDT us Harry Patterson MD HEMATOLOGY ORDERABLES Fi nal Result [facility] [address] [place] [address] * (ABNORMAL) Comprehensive Metabolic Panel (CMP) (05/31/2024 6:54 AM CDT) Only the most recent of6 resultswithin the time period is included. SODIUM 141 136 - 145 mmol/L 05/31/2024 8:39 AM CDT [facility] POTASSIUM 4.4 3.5 - 5.1 mmol/L 05/31/2024 8:39 AM CDT [facility] CHLORIDE 106 98 - 107 mmol/L 05/31/2024 8:39 AM CDT [facility] CO2, VENOUS 28 22 - 30 mmol/L 05/31/2024 8:39 AM CDT [facility] ANION GAP 11.4 <18.0 mmol/L 05/31/2024 8:39 AM CDT [facility] GLUCOSE 93 70 - 99 mg/dL 05/31/2024 8:39 AM CDT [facility] BUN 11 9 - 21 mg/dL 05/31/2024 8:39 AM [facility] CREATININE, BLOOD 0.89 0.70 - 1.30 mg/dL 05/31/2024 8:39 AM [facility] BUN/CREATININE RATIO 12 12 - 20 ratio 05/31/2024 8:39 AM [facility] TOTAL PROTEIN 6.5 6.0 - 8.0 g/dL 05/31/2024 8:39 AM [facility] ALBUMIN 3.6 3.5 - 5.0 g/dL 05/31/2024 8:39 AM [facility] A/G RATIO 1.2 1.0 - 2.2 05/31/2024 8:39 AM [facility] CALCIUM 8.9 8.7 - 10.5 mg/dL 05/31/2024 8:39 AM [facility] T BILI 0.3 0.2 - 1.2 mg/dL 05/31/2024 8:39 AM [facility] SGOT (AST) 86(H) <43 U/L 05/31/2024 8:39 AM [facility] SGPT (ALT) 138(H) <56 U/L 05/31/2024 8:39 AM [facility] ALKALINE PHOSPHATASE 40 40 - 150 U/L 05/31/2024 8:39 AM [facility] GFR, ESTIMATED >60 >=60 05/31/2024 8:39 AM [facility] Comment: Creatinine Clearance is the preferred criteria for selecting drug dose adjustments in renally impaired patients. The GFR is provided as additional pertinent clinical information. GFR is reported in mL/min/1.73 sq m. Calculation based on the Chronic Kidney Disease Epidemiology Collaboration (CKD- EPI) equation refit without adjustment for race. GFR, EST. >60 >=60 025 8:39 AM [facility] GFR, EST. NONAFRICAN >60 >=60 05/31/2024 8:39 AM [facility] Blood Venipuncture / Unknown 05/31/2024 6:54 AM CDT 05/31/2024 7:04 AM CDT Harry Patterson MD CHEMISTRY ORDERABLES Fin al Result Performing Organization Address [facility] Co de Phone Number [facility] [address] [place] [address] * (ABNORMAL) BARTONELLA AB PANEL, IGG & IGM, BOONE (05/29/2024 4:23 AM CDT) Only the most recent of2 resultswithin the time period is included. BOONE HENSELAE IGG 1:512(A) <1:128 titer 06/01/2024 11:02 PM CDT [facility] Comment:Results suggest rece nt infection. BOONE HENSELAE IGM >=1:20(A) <1:20 titer 06/01/2024 11:02 PM CDT [facility] Comment:Results suggest rece nt infection. BOONE REBOLLEDO IGG <1:128 <1:128 titer 06/01/2024 11:02 PM CDT [facility] BOONE REBOLLEDO IGM <1:20 <1:20 titer 06/01/2024 11:02 PM CDT [facility] Comment: ADDITIONAL INFORMATION This test was developed and its performance characteristics determined by [facility] in a manner consistent with CLIA requirements. This test has not been cleared or approved by the U.S. Food and Drug Administration. Test Performed by: [facility] - [address] [address] [employer] Stitcher: Chantale Reyes Ph.D.; CLIA# [id number] Blood Venipuncture / Unknown 05/29/2024 4:23 AM CDT 05/29/2024 4:50 AM CDT Harry Patterson MD LAB SEND OUTS Final Re sult [facility] * (ABNORMAL) MRSA NASAL PCR (05/26/2024 11:32 PM CDT) MRSA PCR RESULT Positive(A ) Negative, Invalid 05/27/2024 12:53 AM CDT [facility] Other NASOPHARYNGEAL SWAB / Unknown Non-Phlebotomy Collection / Unknown 05/26/2024 11:32 PM CDT 05/26/2024 11:44 PM CDT us Iraida Holbrook SECTIONAL BELT MOLD ASSEMBLER, DISPUTE RESOLUTION ANALYST MICROBIOLOGY - GENERA L ORDERABLES Final Result [facility] [address] [place] [address] * CT LEFT ELBOW W CONTRAST (05/26/2024 10:16 PM CDT) Anatomical Region Laterality Modality UPPER EXTREMITY Left Computed Tomogra phy 05/26/2024 10:3 7 PM CDT Impressions 05/26/2024 10:39 PM CDT IMPRESSION: Findings most suggestive of extensive cellulitis of the subcutaneous tissues of the posteromedial aspect of the lower upper arm, elbow and proximal forearm. No clear evidence of an abscess is seen. Possible enlarged lymph nodes are noted which may be necrotic. MRI would likely provide better evaluation. Narrative 05/26/2024 10:39 PM CDT EXAM DESCRIPTION: CT LEFT ELBOW W CONTRAST REASON FOR STUDY: Left upper extremity edema, concern for abscess TECHNIQUE: Multidetector CT scan of the left elbow was performed after intravenous contrast. Coronal and sagittal images were reconstructed. Dose modulation adjustment of the mA and/or kV has been performed per [facility] protocols according to patient size and indication CONTRAST TYPE/DOSE: 100mL of IOPAMIDOL 76 % IV SOLN injected via Intravenous COMPARISON: None FINDINGS: Bones: No fracture. No dislocation. Soft Tissues: There is extensive fluid density seen primarily in the subcutaneous fat along the posteromedial aspect of the proximal forearm, elbow and distal upper arm. This is ill-defined and most likely represents edema or cellulitis. There are noted to be nodular structures particularly along the medial aspect of the distal humerus which may represent enlarged lymph nodes. The largest of these measures 1 point 8 cm. Some of these are relatively hypodense suggesting there may represent necrotic nodes. Deeper soft tissues appear to be better preserved. Other: No other finding. THIS IS AN ELECTRONICALLY VERIFIED FINAL REPORT 05/26/2024 10:37 PM - Electronically signed by Ciaran LESLIE: MARIAMA Report ID: [id number] Reading Location: [id number] Procedure Note Ciaran Duarte MD - 05/26/2024 EXAM DESCRIPTION: CT LEFT ELBOW W CONTRAST REASON FOR STUDY: Left upper extremity edema, concern for abscess TECHNIQUE: Multidetector CT scan of the left elbow was performed after intravenous contrast. Coronal and sagittal images were reconstructed. Dose modulation adjustment of the mA and/or kV has been performed per [facility] protocols according to patient size and indication CONTRAST TYPE/DOSE: 100mL of IOPAMIDOL 76 % IV SOLN injected via Intravenous COMPARISON: None FINDINGS: Bones: No fracture. No dislocation. Soft Tissues: There is extensive fluid density seen primarily in the subcutaneous fat along the posteromedial aspect of the proximal forearm, elbow and distal upper arm. This is ill-defined and most likely represents edema or cellulitis. There are noted to be nodular structures particularly along the medial aspect of the distal humerus which may represent enlarged lymph nodes. The largest of these measures 1 point 8 cm. Some of these are relatively hypodense suggesting there may represent necrotic nodes. Deeper soft tissues appear to be better preserved. Other: No other finding. THIS IS AN ELECTRONICALLY VERIFIED FINAL REPORT 05/26/2024 10:37 PM - Electronically signed by Ciaran LESLIE: MARIAMA Report ID: [id number] Reading Location: [id number] IMPRESSION: Findings most suggestive of extensive cellulitis of the subcutaneous tissues of the posteromedial aspect of the lower upper arm, elbow and proximal forearm. No clear evidence of an abscess is seen. Possible enlarged lymph nodes are noted which may be necrotic. MRI would likely provide better evaluation. us Iraida Holbrook SECTIONAL BELT MOLD ASSEMBLER, DISPUTE RESOLUTION ANALYST IMG CT ORDERABLES Fin al Result * (ABNORMAL) Urinalysis with Reflex (05/26/2024 8:52 PM CDT) SPECIFIC GRAVITY 1.010 1.003 - 1.030 05/26/2024 9:08 PM CDT [facility] URINE PH 7.0 5.0 - 9.0 05/26/2024 9:08 PM CDT [facility] WBC ESTERASE Negative Negative 05/26/2024 9:08 PM CDT [facility] NITRITE Negative Negative 05/26/2024 9:08 PM CDT [facility] PROTEIN, RANDOM URINE 15 mg/dL(A) Negative 05/26/2024 9:08 PM CDT [facility] URINE GLUCOSE, QUAL Negative Negative 05/26/2024 9:08 PM CDT [facility] URINE KETONES 15 mg/dL(A) Negative 05/26/2024 9:08 PM CDT [facility] UROBILINOGEN Normal Normal mg/dL 05/26/2024 9:08 PM CDT [facility] URINE BLOOD Negative Negative dex/ul 05/26/2024 9:08 PM CDT [facility] URINALYSIS COLOR Yellow 05/27/19 25 9:08 PM CDT [facility] URINALYSIS CLARITY Clear 05/26/2024 9:08 PM CDT [facility] Urine URINE SPECIMEN / Unknown Non-Phlebotomy Collection / Unknown 05/26/2024 8:52 PM CDT 05/26/2024 9:01 PM CDT Kareem Min MD URINE ORDERABLES Final Res ult [facility] [address] [place] [address] * Gold Top Tube (05/26/2024 8:39 PM CDT) Blood No Phlebotomy Charged / Unknown 05/26/2024 8:39 PM CDT 05/26/2024 8:47 PM CDT us Kareem Min MD CHEMISTRY ORDERABLES Final Result Performing Organization Address City/[facility]/ZIP Co de Phone Number [facility] [address] [place] [address] * Blue Top Tube (05/26/2024 8:39 PM CDT) Blood No Phlebotomy Charged / Unknown 05/26/2024 8:39 PM CDT 05/26/2024 8:47 PM CDT us Kareem Min MD HEMATOLOGY ORDERABLES Ann-Marie l Result Performing Organization Address [facility] Co de Phone Number [facility] [address] [place] [address] * Erythrocyte Sedimentation Rate (ESR) (05/26/2024 8:39 PM CDT) Pathologist [facility] ESR (SED RATE, ERYTHROCYTE SEDIMENTATION RATE) 10 <15 mm/h 05/26/2024 10:15 PM CDT [facility] Comment: Patients presenting with increased level of fibrinogen, gamma globulins, or abnormally shaped RBCs could affect the results for the erythrocyte sedimentation rate (ESR). Results should be clinically correlated. Blood Venipuncture / Unknown 05/26/2024 8:39 PM CDT 05/26/2024 8:48 PM CDT us Iraida Holbrook APRN, ZOILA HEMATOLOGY ORDERABLES Final Result Performing Organization Address City/[facility]/ZIP Co de Phone Number [facility] [address] [place] [address] * Crane Test (Infectious Mononucleosis) (05/26/2024 8:39 PM CDT) MONO TEST Negative Negative 05/26/2024 11:23 PM CDT [facility] Blood No Phlebotomy Charged / Unknown 05/26/2024 8:39 PM CDT 05/26/2024 8:47 PM CDT us Iraida Lila Holbrook APRN, CNP IMMUNOLOGY ORDERABLES Final Result [facility] [address] [place] [address] * Hepatitis Panel Acute (AHP) (05/26/2024 8:39 PM CDT) HEPATITIS A IGM ANTIBODY NON DETECTED NON DETECTED 05/27/2024 3:17 PM CDT [facility] Comment: IGM Antibodies to HAV not detected. Does not exclude early acute or recovered HAV infection. HEP B CORE AB (IGM) NON DETECTED NON DETECTED 05/27/2024 3:17 PM CDT [facility] Comment:IGM anti-HBC not det ected. Does not exclude the possibility of exposure to or infection with HBV. HEPATITIS B SURFACE ANTIGEN NON DETECTED NON DETECTED 05/27/2024 3:17 PM CDT [facility] Comment:A nonreactive test r esult does not exclude the possibility of exposure to or infection with Hepatitis B virus. A nonreactive test result in individuals with prior exposure to hepatitis B may be due to antigen levels below the detection limit of this assay or lack of antigen reactivity to the antibodies in this assay. hepatitis C antibody 0.16 <1 S/CO 05/27/2024 3:17 PM CDT [facility] Comment: Signal/Cutoff ratio < 0.79 is Nondetected Signal/Cutoff ratio 0.80-0.99 is Grayzone Signal/Cutoff ratio > 0.99 is Detected Supplemental assays are recommended if signal/cutoff ratio is >/=1.00. Signal/cutoff ratio result >/= 5.00 is 97% predictive of positivity for recombinant immunoblot assay (RIBA) and will be reported to the [place] Department of Public Health as required. Blood Venipuncture / Unknown 05/26/2024 8:39 PM CDT 05/26/2024 9:24 PM CDT Kareem Min MD HEMATOLOGY ORDERABLES Ann-Marie l Result Performing Organization Address City/[facility]/ZIP Co de Phone Number [facility] [address] [place] [address], * Blood Culture #2 (05/26/2024 8:39 PM CDT) Only the most recent of2 resultswithin the time period is included. CULTURE RESULTS NO GROWTH WITHIN 5 DAYS, FINAL RESULT 05/31/2024 9:00 PM CDT [facility] Culture BLOOD SPECIMEN / Unknown Venipuncture / Unknown 05/26/2024 8:39 PM CDT 05/26/2024 8:48 PM CDT Kareem Min MD MICROBIOLOGY - GENERAL ORD ERABLES Final Result Performing Organization Address [facility] Co de Phone Number [facility] [address] [place] [address], [place] * (ABNORMAL) C-Reactive Protein (CRP) Quant (05/26/2024 8:39 PM CDT) C-REACTIVE PROTEIN 2.46(H) <0.50 mg/dL 05/26/2024 10:38 PM CDT [facility] Blood Venipuncture / Unknown 05/26/2024 8:39 PM CDT 05/26/2024 8:48 PM CDT us Iraida Holbrook SECTIONAL BELT MOLD ASSEMBLER, DISPUTE RESOLUTION ANALYST CHEMISTRY ORDERABLES Final Result [facility] [address] [place] [address] * Lactic Acid (Lactate) (05/26/2024 8:28 PM CDT) LACTIC ACID 1.9 0.7 - 2.0 mmol/L 05/26/2024 9:10 PM CDT [facility] Blood Venipuncture / Unknown 05/26/2024 8:28 PM CDT 05/26/2024 8:48 PM CDT us Kareem Min MD CHEMISTRY ORDERABLES Final Result [facility] [address] [place] [address] from Last 3 Months Additional Health Concerns 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 PRE-ARREST: Use entire range of life support measures to stabilize the patient. Care Teams Stakeholder Manager Relationship Specialty Start Date End Date Aleksander Whaley MD [address] [place] [address] [address] [place] [address] PCP - General Family Medicine 05/30/24
--- OUTSIDE RECORDS SUMMARY | 2024-08-02 18:04 | XMS_ITS | Referral Summary ---
Author Organization [facility] Address [address] [place] [address] Care Team Providers Care Account Maintenance Representative Name Role Phone No, Physician Primary Care Provider [phone] Encounters Date Type Department Care Team Description 05/25/2024 Telephone [facility] Oncology [address] [facility] [address] [place] [phone] No, Physician 05/24/2024 11:12 AM CDT - 05/24/2024 2:45 PM CDT Emergency [facility] Emergency Department [address] [place] [address] Lymphangitis (Primary Dx) Discharge Disposition: Discharge to home or self care 05/24/2024 8:45 AM CDT Office Visit [facility] [address] [place] [phone] Georgette Gavin NP Epitrochlear adenopathy (Primary Dx); Left arm swelling from Last 3 Months Allergies No known active allergies Medications ibuprofen (ADVIL,MOTRIN) 200 mg tab/cap Take by mouth every 6 (six) hours as needed for pain. Active ofloxacin (OCUFLOX) 0.3 % ophthalmic solution 4gtt AU BID; use until gone 9 Active cetirizine (ZyrTEC) 10 mg tablet Take 10 mg by mouth daily Active HYDROcodone-wendy taminophen (NORCO) 5-325 mg per tabletIndicatio ns:Pain Take 1-2 tablets by mouth every 4 (four) hours as needed for pain for up to 12 doses 12 tablet Active Additional Information Patient not taking.Reported on 05/24/2024 Active Problems Problem Noted Date Diagnosed Date Conductive hearing loss, bilateral 09/24/2023 Assessment & Plan (09/24/2023 3:47 PM CDT): Resolved with cerumen removal Closed displaced fracture of proximal phalanx of right middle finger 11/07/2021 Overview (11/07/2021): Added automatically from request for surgery [id number] Acquired stenosis of both external ear canals Bilateral impacted cerumen 07/28/2018 Assessment & Plan (09/24/2023 3:47 PM CDT): Avoid ear cleaning techniques Follow up as needed if ears plugged Adjustment disorder 06/14/2017 Immunizations Immunization Administration Dates Next Due Tdap 05/24/2024 Social History Tobacco Use Types Packs/Day Years Used Date Smoking Tobacco: Every Day E-cigarettes Smokeless Tobacco: Never Tobacco Cessation:Counseling Given: Not Answered Comments:Vaping AUDIT-C Answer Date Recorded Q1: How often do you have a drink containing alc ohol? 2-3 times a week 11/07/2021 Q2: How many drinks containi ng alcohol do you have on a typical day when you are drinking? 5 or 6 11/07/2021 Q3: How often do you have si x or more drinks on one occasion? Monthly 11/07/2021 Personal Safety Answer Date Recorded Have you ever been in or are you currently in a harmful physical or emotional relationship or is someone making you feel afraid or unsafe? Denies 05/24/2024 Sex and Gender Information Value Date Recorded Sex Assigned at Not on file Legal Sex Male 12:37 PM [employer] Gender Identity Not on file Sexual Orientation Not on file Last Filed Vital Signs Vital Sign Reading Time Taken Comments Blood Pressure 138/74 05/24/2024 2:23 PM CDT Pulse 78 05/24/2024 2:23 PM CDT Temperature 36.9 C (98.5 F) 05/24/2024 9:57 AM CDT Respiratory Rate 20 05/24/2024 2:23 PM CDT Oxygen Saturation 98% 05/24/2024 2:23 PM CDT Inhaled Oxygen Concentration - - Weight 70.3 kg (155 lb) 05/24/2024 9:57 AM CDT Height 175.3 cm (5' 9) 05/24/2024 9:57 AM CDT Body Mass Index 22.89 05/24/2024 9:57 AM CDT Plan of Treatment Not on file Medical Devices Implanted Type Area Hatchery Supervisor Device Identifier Shelf Expiration Date Model / Serial / Lot [employer] K Wire Fix [place] Smooth Sgl End Ss [id number] - S0 - [id number] Implanted:Qty: 2 on 11/08/2021 by Elina Cooper MD at [facility] Right: Wrist [employer] [id number] S / 0 / Procedures Procedure Name Priority Date/Time Associated Diagnosis Comments EGFR STAT 05/24/2024 1:21 PM CDT DIFFERENTIAL AUTO STAT 05/24/2024 1:2 1 PM CDT COMPREHENSIVE METABOLIC PANEL STAT 05/24/2024 1:21 PM CDT CBC WITH AUTO DIFFERENTIAL STAT 05/24/2024 1:21 PM CDT US VEIN DUPLEX UPPER EXTREMITY LEFT LIMITED ED 05/24/2024 1:10 PM CDT from Last 3 Months Results * eGFR (05/24/2024 1:21 PM CDT) eGFR >90 >=60 mL/min/1. 73 m2 Comment: Interpretive Data Reference Interval Normal >/= 90 mL/min/1.73m2 Mildly decreased* 60 - 89 mL/min/1.73m2 Mildly to moderately decreased 45 - 59 mL/min/1.73m2 Moderately to severely decreased 30 - 44 mL/min/1.73m2 Severely decreased 15 - 29 mL/min/1.73m2 Kidney Failure < 15 mL/min/1.73m2 *Relative to young adult level Estimated glomerular filtration rate is determined by the 2020 CKD-EPI equation recommended by the National Kidney Foundation (A Unifying Approach to GFR Estimation: Recommendations of the NKF-ASK Task Force on Reassessing the Inclusion of Race in Diagnosing Kidney Disease, JASN 2020). The CKD-EPI equation should not be used for patients with unstable renal function and has not been validated in children and those over 70. Current interpretive data was last reviewed 2020. Blood 05/24/2024 1:21 PM CDT 05/24/2024 1:23 PM CDT us Get Gonzalez PATIENT SERVICE COORDINATOR LAB BLOOD ORDERABLES Final Result [facility] ([place]) [address] [facility] [place] [address] * (ABNORMAL) Differential, auto (05/24/2024 1:21 PM CDT) Neutrophil abs 4.88 1.50 - 6.50 K/cumm Imm gran abs 0.02 0.00 - 0.10 K/cumm [facility] ([place]) Lymphocyte abs 1.36 0.80 - 3.30 K/cumm [facility] ([place]) Monocyte abs 1.15(H) 0.20 - 0.80 K/cumm [facility] ([place]) Eosinophil abs 0.07 0.00 - 0.50 K/cumm [facility] ([place]) Basophil abs 0.05 0.00 - 0.10 K/cumm [facility] ([place]) Neutrophil pct 64.7 % [facility] ([place]) Comment: Interpretive Data Percent cell count reference ranges are not reported, since discordance with absolute values may lead to misinterpretation of CBC data. Current Interpretive Data was last revised on 2017. Imm gran pct 0.3 % [facility] ([place]) Comment: Interpretive Data Percent cell count reference ranges are not reported, since discordance with absolute values may lead to misinterpretation of CBC data. Current Interpretive Data was last revised on 2017. Lymphocyte pct 18.1 % [facility] ([place]) Comment: Interpretive Data Percent cell count reference ranges are not reported, since discordance with absolute values may lead to misinterpretation of CBC data. Current Interpretive Data was last revised on 2017. Monocyte pct 15.3 % [facility] ([place]) Comment: Interpretive Data Percent cell count reference ranges are not reported, since discordance with absolute values may lead to misinterpretation of CBC data. Current Interpretive Data was last revised on 2017. Eosinophil pct 0.9 % [facility] ([place]) Comment: Interpretive Data Percent cell count reference ranges are not reported, since discordance with absolute values may lead to misinterpretation of CBC data. Current Interpretive Data was last revised on 2017. Basophil pct 0.7 % [facility] ([place]) Comment: Interpretive Data Percent cell count reference ranges are not reported, since discordance with absolute values may lead to misinterpretation of CBC data. Current Interpretive Data was last revised on 2017. Blood 05/24/2024 1:2 1 PM CDT 05/24/2024 1:23 PM CDT us Get Gonzalez NP LAB BLOOD ORDERABLES Final Result [facility] ([place]) 1 [facility] [place] [address] * CBC with auto differential (05/24/2024 1:21 PM CDT) WBC 7.53 3.80 - 9.90 K/cumm Hgb 16.7 13.0 - 17.5 g/dL [facility] ([place]) Hct 47.8 38.9 - 50.3 % [facility]) Plt 182 150 - 400 K/cumm [facility] ([place]) MPV 10.6 9.1 - 12.3 fL [facility] ([place]) RBC 5.22 4.30 - 5.80 M/cumm [facility] ([place]) MCV 91.6 81.3 - 96.4 fL [facility]) MCH 32.0 27.1 - 33.3 pg [facility] ([place]) MCHC 34.9 32.3 - 35.7 g/dL [facility] ([place]) RDW CV 12.7 11.1 - 14.9 % [facility]) RDW SD 42.7 35.7 - 48.1 fL [facility]) NRBC abs 0.00 0.00 - 0.01 K/cumm [facility] Blood 05/24/2024 1:21 PM CDT 05/24/2024 1:23 PM CDT us Get Gonzalez NP LAB BLOOD ORDERABLES Final Result [facility] ([place]) 1 [facility] [place] [address] * (ABNORMAL) Comprehensive metabolic panel (05/24/2024 1:21 PM CDT) Sodium 139 135 - 145 mmol/L Potassium, pl 4.1 3.3 - 4.9 mmol/L [facility]) Chloride 101 97 - 110 mmol/L [facility]) CO2 26 22 - 32 mmol/L [facility] Anion gap 12 2 - 15 mmol/L [facility] BUN 12 6 - 25 mg/dL [facility] Creatinine 1.15 0.80 - 1.30 mg/dL [facility]) Glucose 94 70 - 199 mg/dL [facility] Comment: Interpretive Data Fasting glucose >/= 126 mg/dl is diagnostic for diabetes. Fasting is defined as no caloric intake for at least 8 hours. Fasting glucose between 100 mg/dl to 125 mg/dl is diagnostic of prediabetes. In a patient with classic symptoms of hyperglycemia or hyperglycemic crisis, a random glucose >/= 200 mg/dl is diagnostic for diabetes. In the absence of unequivocal hyperglycemia, results should be confirmed by repeat testing. The classification and Diagnosis of Diabetes Diabetes Care 2021; 46: S19-S40. Current interpretive data was last revised 2022. Calcium 9.5 8.5 - 10.3 mg/dL [facility] ([place]) Bilirubin, total 0.4 0.1 - 1.2 mg/dL [facility] ([place]) Protein, pl 7.0 6.5 - 8.5 g/dL [facility] ([place]) Albumin 4.5 3.5 - 5.0 g/dL [facility] ([place]) Alk phos 54 40 - 130 Units/L [facility]) ALT 55 7 - 55 Units/L [facility]) AST 192(H) 10 - 50 Units/L [facility] ([place]) Comment:Slightly Hemolyzed S pecimen Blood 05/24/2024 1:21 PM CDT 05/24/2024 1:23 PM CDT us Get Gonzalez NP LAB BLOOD ORDERABLES Final Result [facility] ([place] 1 [facility] [place] [address] * US Vein Duplex Upper Extremity Left Limited, Unilateral (05/24/2024 1:10 PM CDT) Anatomical Region Laterality Modality Vascular Left Ultrasound 05/24/2024 1:40 PM CDT Narrative 05/24/2024 1:52 PM CDT EXAM DESCRIPTION: US VEIN DUPLEX UPPER EXTREMITY LEFT LIMITED, UNILATERAL HISTORY: Mutiple bumps to left upper arm TECHNIQUE: Duplex scan was performed using B-mode, spectral Doppler and color-flow Doppler imaging of the left upper extremity was performed utilizing real-time ultrasonography. COMPARISON: None FINDINGS: The deep venous system from the jugular vein through the antecubital fossa demonstrates normal color Doppler flow and wave forms, normal compressibility where applicable, and normal augmentation. The cephalic vein is not seen. Multiple indeterminate rounded hypoechoic masses are noted within the arm some of which may demonstrate fatty hilum. At least 4 are identified by the eeg technician and do not demonstrate definitive internal flow on color Doppler. These measure approximately 9 x 11 x 13 mm, 11 x 10 x 12 mm, 13 x 12 x 13 mm and 8 x 6 x 8 mm. No organized drainable fluid collection. IMPRESSION: 1. No sonographic evidence of deep venous thrombosis within the left upper extremity. 2. Incompletely evaluated at least 4 indeterminate rounded masses within the soft tissues of the left arm. These may represent abnormal lymph nodes. Recommend correlation with history and physical examination. Follow-up ultrasound is recommended in 2 weeks. Findings discussed with DUSTIN Gonzalez at approximately 1:45 p.m. on 05/24/2024. THIS IS AN ELECTRONICALLY VERIFIED FINAL REPORT 05/24/2024 1:52 PM - Electronically signed by Mukul Dempsey M.D. AG: [facility] Report ID: [id number] Reading Location: [place] [address] Procedure Note Mukul Dempsey MD - 05/24/2024 EXAM DESCRIPTION: US VEIN DUPLEX UPPER EXTREMITY LEFT LIMITED,UNILATERAL HISTORY: Mutiple bumps to left upper arm TECHNIQUE: Duplex scan was performed using B-mode, spectral Doppler and color-flow Doppler imaging of the left upper extremity was performed utilizing real-time ultrasonography. COMPARISON: None FINDINGS: The deep venous system from the jugular vein through the antecubital fossa demonstrates normal color Doppler flow and wave forms, normalcompressibility where applicable, and normal augmentation. The cephalic vein is not seen. Multiple indeterminate rounded hypoechoic masses are noted within the armsome of which may demonstrate fatty hilum. At least 4 are identified by the eeg technician and do not demonstrate definitive internal flow on colorDoppler. These measure approximately 9 x 11 x 13 mm, 11 x 10 x 12 mm, 13 x 12 x 13mm and 8 x 6 x 8 mm. No organized drainable fluid collection. IMPRESSION: 1. No sonographic evidence of deep venous thrombosis within the leftupper extremity. 2. Incompletely evaluated at least 4 indeterminate rounded masses withinthe soft tissues of the left arm. These may represent abnormal lymph nodes. Recommend correlation with history and physical examination. Follow-up ultrasound is recommended in 2 weeks. Findings discussed with DUSTIN Gonzalez at approximately 1:45 p.m. on 05/24/2024. THIS IS AN ELECTRONICALLY VERIFIED FINAL REPORT 05/24/2024 1:52 PM - Electronically signed by Mukul Dempsey M.D. AG: [facility]I Report ID: [id number] Reading Location: [id number] Get Gonzalez NP IMG US PROCEDURES Final Res ult from Last 3 Months Insurance [facility] H[facility]/PPO Address: [address] [address] [place] [address] [facility] H[facility]/PPO Address: [address] [address] [place] [address] Care Teams Account Maintenance Representative Relationship Specialty Start Date End Date No, Physician PCP - General 11/07/21
--- OUTSIDE RECORDS SUMMARY | 2024-08-02 18:04 | XMS_ITS | Clinical Summary ---
Author Organization [facility] Address [address] [place] [address] Care Team Providers Care Maintenance Carpenter Name Role Phone No, Physician Primary Care Provider [phone] Allergies No known active allergies Medications ibuprofen [...] for up to 12 doses 12 tablet 2 Active Additional Information Patient not taking.Reported on 05/24/2024 Active Problems Problem Noted Date Diagnosed Date Conductive hearing loss, bilateral 09/24/2023 Assessment & Plan (09/24/2023 3:47 PM CDT): Resolved with cerumen removal Closed displaced fracture of proximal phalanx of right middle finger 11/07/2021 Overview (11/07/2021): Added automatically from request for surgery [id number] Acquired stenosis of both external ear canals Bilateral impacted cerumen 07/28/2018 Assessment & Plan (09/24/2023 3:47 PM CDT): Avoid ear cleaning techniques Follow up as needed if ears plugged Adjustment disorder 06/14/2017 Encounters Date Type Department Care Team Description 05/25/2024 Telephone [facility] [address] [place] [id number] No, Physician 05/24/2024 11:12 AM CDT - 05/24/2024 2:45 PM CDT Emergency [facility] Emergency Department [address] [place] [address] Lymphangitis (Primary Dx) Discharge Disposition: Discharge to home or self care 05/24/2024 8:45 AM CDT Office Visit [facility] [address] [place] [address] Georgette Gavin NP Epitrochlear adenopathy (Primary Dx); Left arm swelling from Last 3 Months Immunizations Immunization Administration Dates Next Due Tdap 05/24/2024 Medical History Medical History Date Comments Known health problems: none Heart murmur 2001 mom states he arredondo d one as a baby, and was told he would likely outgrow it. No mention of it since. Allergic rhinitis Family History Medical History Relation Name Comments No Known Problems Brother No Known Problems Daughter No Known Problems Father No Known Problems Mother No Known Problems Sister Relation Name Status Comments Brother Daughter Father Mother Sister Social History Tobacco Use Types Packs/Day Years [...] on file Legal Sex Male 12:37 PM PI[employer]URE [employer] Gender Identity Not on file Sexual Orientation Not on file Obstetrics History Last Filed Vital Signs Vital Sign Reading [...] 05/24/2024 9:57 AM CDT Plan of Treatment Health Maintenance Due Date Last Done Comments Depression Screening 2002 Hepatitis C Screening 2002 Pneumococcal vaccine <65 (1 of 1 - PPSV23) 02/02/2008 2002, 2002, 2002 Regular Well Visit/Exam 18-64 02/02/2020 Influenza Vaccine (Season Ended) 2024 11/18/19 18 DTaP/Tdap/Td Vaccine (8 - Td or Tdap) 05/24/2034 05/24/2024, 09/16/2013, 02/04/2006, Additional history exists Hepatitis B Screening Completed 2002 , 2002, 2002 Varicella Vaccines Completed 02/04/2006, 07/28/2003 HPV Vaccines Completed 11/17/2017, 09/25/2016 Meningococcal B Vaccine Completed 08/27/2018, 07/20 Medical Devices Implanted Type Area Farmworker Grain Device Identifier Shelf Expiration Date Model / Serial / Lot [employer] K Wire Fix [place] Smooth Sgl End Ss [id number] - S0 - [id number] Implanted:Qty: 2 on 11/08/2021 by Elina Cooper MD at [facility] Right: Wrist [employer] [id number] S / 0 / Procedures Procedure Name [...] Results * eGFR (05/24/2024 1:21 PM CDT) Pathologist [facility] [place] eGFR >90 >=60 mL/min/1. 73 m2 Comment: [...] LAB BLOOD ORDERABLES Final Result [facility] [place] [address] * (ABNORMAL) Differential, auto (05/24/2024 1:21 PM [...] was last revised on 2017. Blood 05/24/2024 1:21 PM CDT 05/24/2024 1:23 PM CDT us Get Gonzalez NP LAB BLOOD ORDERABLES Final Result [facility] ([place]) 1 [facility] [place] [address] * CBC with auto differential (05/24/2024 1:21 [...] RDW SD 42.7 35.7 - 48.1 fL [facility] NRBC abs 0.00 0.00 - 0.01 K/cumm [facility] ([facility] Blood 05/24/2024 1:21 PM CDT 05/24/2024 1:23 PM CDT us Get Gonzalez NP LAB BLOOD ORDERABLES Final Result [facility] ([place]) 1 [facility] [place] [address] * (ABNORMAL) Comprehensive metabolic panel (05/24/2024 1:21 PM CDT) Pathologist [facility] [place] Sodium 139 135 - 145 mmol/L Potassium, pl 4.1 3.3 - 4.9 mmol/L [facility] ([place]) Chloride 101 97 - 110 mmol/L [facility] ([place]) CO2 26 22 - 32 mmol/L [facility] ([place]) Anion gap 12 2 - 15 mmol/L [facility] ([place]) BUN 12 6 - 25 mg/dL [facility] ([place]) Creatinine 1.15 0.80 - 1.30 mg/dL [facility] ([place]) Glucose 94 70 - 199 mg/dL [facility] ([place]) Comment: Interpretive Data Fasting glucose [...] Gonzalez NP LAB BLOOD ORDERABLES Final Result [facility] ([place]) 1 [facility] [place] [address] * US Vein Duplex Upper Extremity Left [...] At least 4 are identified by the washery boss and do not demonstrate definitive internal flow [...] Mukul Dempsey M.D. AG: [facility] Report ID: [id number] Reading Location: [id number] Procedure Note Mukul Dempsey MD - 05/24/2024 [...] At least 4 are identified by the washery boss and do not demonstrate definitive internal flow [...] Mukul Dempsey M.D. AG: [facility] Report ID: [id number] Reading Location: [place] [address] us Get Gonzalez NP IMG US PROCEDURES Final Res ult from Last 3 Months Insurance [facility] Care Teams Maintenance Carpenter Relationship Specialty Start Date End Date No, Physician PCP - General 11/07/21
[2024-08-02 18:05] VITALS: BP 138/98; PULSE 78; RESP 16; TEMP 37.4; O2SAT 99
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
== END 2024-08-02 18:41 | disposition home or self-care (01) ==
PROVIDERS: Emergency Provider Nurse Practitioner Family
DX: S46.912A Strain of unspecified muscle, fascia and tendon at shoulder and upper arm level, left arm, initial encounter (principal); V48.9XXA Unspecified car occupant injured in noncollision transport accident in traffic accident, initial encounter
CPT/HCPCS: 73030; 99213; G0463